=== PATIENT | female | born 1980 | race Two or more races ===

== ENCOUNTER → 2016-10-05 | Outpatient (CLI) | payer MEDICAID ==
[2016-10-05 10:07] LABS: ABSOLUTE BASOPHILS # (AUTO) 0.1 10^3/uL (0.0-0.2); ABSOLUTE EOSINOPHILS # (AUTO) 0.1 10^3/uL (0.0-0.6); ABSOLUTE LYMPHOCYTES (AUTO) 2.9 10^3/uL (0.5-4.7); ABSOLUTE MONOCYTES (AUTO) 0.5 10^3/uL (0.1-1.4); ABSOLUTE NEUT (AUTO) 7.3 10^3/uL (1.7-8.2); BASOPHILS % (AUTO) 0.5 % (0-2); EOSINOPHILS % (AUTO) 0.8 % (0-6); HEMATOCRIT 24.4 % (36.0-47.0); HGB HCT DIFFERENCE -2.2; LYMPHOCYTES % (AUTO) 26.9 % (13-45); MEAN CORPUSCULAR HEMOGLOBIN 16.6 pg (27.0-33.4); MEAN CORPUSCULAR HGB CONC 30.1 g/dL (32.0-36.0); MEAN CORPUSCULAR VOLUME 55 fl (80-97); RED BLOOD COUNT 4.43 10^6/uL (3.72-5.28); RED CELL DISTRIBUTION WIDTH 23.4 % (11.5-14.0); SEGMENTED NEUTROPHILS % (AUTO) 66.8 % (42-78); WHITE BLOOD COUNT 10.9 10^3/uL (4.0-10.5)
[2016-10-05 10:29] LABS: POLYCHROMASIA SLIGHT
[2016-10-05 10:30] LABS: ANISOCYTOSIS 3+; HEMOGLOBIN 7.4 g/dL (12.0-15.5); HYPOCHROMASIA 2+; MICROCYTOSIS 4+; OVALOCYTES SLIGHT; POIKILOCYTOSIS 1+; TEAR DROP CELLS SLIGHT
[2016-10-05 10:32] LABS: ALANINE AMINOTRANSFERASE 23 U/L (9-52); ALKALINE PHOSPHATASE 112 U/L (38-126); ANION GAP 14 (5-19); ASPARTATE AMINO TRANSFERASE 17 U/L (14-36); BILIRUBIN,DIRECT 0.4 mg/dL (0.0-0.4); BILIRUBIN,TOTAL 0.8 mg/dL (0.2-1.3); BLOOD UREA NITROGEN 9 mg/dL (7-20); CALCIUM 9.8 mg/dL (8.4-10.2); CARBON DIOXIDE 25 mmol/L (22-30); CHLORIDE 103 mmol/L (98-107); CHOLESTEROL 171.91 mg/dL (0-200); CREATININE RESULT 0.68 mg/dL (0.52-1.25); Direct HDL 50 mg/dL (>40); GLUCOSE 118 mg/dL (75-110); POTASSIUM 4.5 mmol/L (3.6-5.0); SODIUM 141.8 mmol/L (137-145); TOTAL PROTEIN 7.3 g/dL (6.3-8.2); TRIGLYCERIDES 114 mg/dL (<150)
[2016-10-05 10:45] LABS: DIRECT LDL 90 mg/dL (<100)
[2016-10-06 19:51] LABS: PATH REVIEW PATHOLOGIST REVIEWED
== END ==
LOC: OD 09:21
PROVIDERS: ATTEND Nurse Practitioner Psychiatric/Mental Health
DX: F31.73 Bipolar disorder, in partial remission, most recent episode manic (principal); Z79.899 Other long term (current) drug therapy
CPT/HCPCS: 36415; 80053; 80061; 83036; 84443; 85025

== ENCOUNTER 2016-12-06 20:01 | Emergency (ER) | payer MEDICAID ==
[2016-12-06 20:40] LABS: APPEARANCE,URINE CLOUDY; BILIRUBIN,URINE NEGATIVE (NEGATIVE); GLUCOSE, URINE NEGATIVE (NEGATIVE); KETONES,URINE NEGATIVE (NEGATIVE); LEUKOCYTE ESTERASE,URINE LARGE (NEGATIVE); NITRITE,URINE NEGATIVE (NEGATIVE); PROTEIN,URINE 100 mg/dL (NEGATIVE); URINE SPECIFIC GRAVITY 1.021
[2016-12-06] MEDS ORDERED: HYDROCODONE/ACETAMINOPHEN 5-325 MG TABLET PO ONE (20:41)
--- NOTE | 2016-12-06 20:42 | ER Document Report ---
ED Neck/Back Problem - General Chief Complaint: Back Pain Stated Complaint: LOWER BACK PAIN Time Seen by Provider: 12/06/16 20:30 Mode of Arrival: Ambulatory Information source: Patient TRAVEL OUTSIDE OF THE [place] IN LAST 30 DAYS: No - HPI Patient complains to provider of: Pain, Injury, Lower back Onset: Other - 2 days ago Where: Home Onset: Sudden Timing: Constant Quality of pain: Achy Severity: Moderate Pain Level: 3 Context: Fall/near-fall Recent injury: Yes Exacerbated by: Movement of trunk Relieved by: Nothing Similar symptoms previously: Yes Recently seen / treated by doctor: Yes Notes: Patient is a 36-year-old female who presents to the emergency room complaining of low back pain as well as dysuria, she did have a slip and fall 2 days ago, landing on her buttocks, she denies any numbness or tingling, no bowel or bladder dysfunction, she has been having pain and burning with urination for 2 weeks, she has been taking Pyridium which is not helping her symptoms, patient did also mention that she is having some vision changes over the past month, she has seen her neurologist for this just yesterday and has a follow-up with him as well - Related Data Allergies/Adverse Reactions: latex [Latex] Allergy (Intermediate, Verified 03/15/12 12:34) swelling Beer Allergy (Severe, Uncoded 05/06/12 13:16) Hives Tomatoes Allergy (Severe, Uncoded 05/06/12 13:16) Swelling all over Vikrill Stitch Adverse Reaction (Intermediate, Uncoded 05/09/12 12:36) Past Medical History - General Information source: Patient - Social History Smoking Status: Unknown if Ever Smoked Family History: Reviewed & Not Pertinent Patient has suicidal ideation: No Patient has homicidal ideation: No - Past Medical History Cardiac Medical History: Reports: Hx Hypertension Pulmonary Medical History: Reports: Hx Asthma Neurological Medical History: Reports: Hx Migraine, Hx Seizures - Grand Mal ( last one 2011) Endocrine Medical History: Reports: Hx Diabetes Mellitus Type 2 Renal/ Medical History: Reports: Hx Kidney Stones, Hx Ovarian Cysts. Denies: Hx Peritoneal Dialysis Musculoskeltal Medical History: Reports Hx Arthritis - Lower back, hands Psychiatric Medical History: Reports: Hx Attention Deficit Hyperactivity Disorder, Hx Bipolar Disorder Past Surgical History: Reports: Hx Orthopedic Surgery - Rods in back, Hx Tubal Ligation - Immunizations Hx Diphtheria, Pertussis, Tetanus Vaccination: Yes - 2005 Hx Pneumococcal Vaccination: 03/11/07 Review of Systems - Review of Systems Constitutional: No symptoms reported EENT: No symptoms reported Cardiovascular: No symptoms reported Respiratory: No symptoms reported Gastrointestinal: No symptoms reported Genitourinary: See HPI Female Genitourinary: No symptoms reported Musculoskeletal: See HPI Skin: No symptoms reported Hematologic/Lymphatic: No symptoms reported Neurological/Psychological: No symptoms reported -: Yes All other systems reviewed and negative Physical Exam - Vital signs Vitals: Temp Pulse Resp BP Pulse Ox 98.4 F 66 18 124/65 98 12/06/16 20:06 12/06/16 20:06 12/06/16 20:06 12/06/16 20:06 12/06/16 20:06 Interpretation: Normal - General General appearance: Appears well, Alert - HEENT Head: Normocephalic, Atraumatic Eyes: Normal Pupils: PERRL - Respiratory Respiratory status: No respiratory distress Chest status: Nontender Breath sounds: Normal Chest palpation: Normal - Cardiovascular Rhythm: Regular Heart sounds: Normal auscultation Murmur: No - Abdominal Inspection: Normal Distension: No distension Bowel sounds: Normal Tenderness: Nontender Organomegaly: No organomegaly - Back Back: Normal, Tender - tender to palpate in bilateral lumbar paraspinal musculature, increased on the left side - Extremities General upper extremity: Normal inspection, Nontender, Normal color, Normal ROM , Normal temperature General lower extremity: Normal inspection, Nontender, Normal color, Normal ROM , Normal temperature, Normal weight bearing. No: Andrzej's sign - Neurological Neuro grossly intact: Yes Cognition: Normal Orientation: AAOx4 Kent Coma Scale Eye Opening: Spontaneous Jenna Coma Scale Verbal: Oriented Kent Coma Scale Motor: Obeys Commands Jenna Coma Scale Total: 15 Speech: Normal Motor strength normal: LUE, RUE, LLE, RLE Sensory: Normal - Psychological Associated symptoms: Normal affect, Normal mood - Skin Skin Temperature: Warm Skin Moisture: Dry Skin Color: Normal Course - Re-evaluation Re-evalutation: 12/06/16 21:30 Lab and imaging findings were discussed with patient at bedside which are significant for urinary tract infection patient will be started on antibiotics and provided with pain medication as well as information for follow-up, advised to return if any additional concerns, patient acknowledges understanding and agreement with this plan - Vital Signs Vital signs: Temp Pulse Resp BP Pulse Ox 99.0 F 64 17 109/63 98 12/06/16 21:53 12/06/16 21:53 12/06/16 21:53 12/06/16 21:53 12/06/16 21:53 - Laboratory Laboratory results interpreted by me: 12/06/16 20:20 Urine Protein 100 H Urine Blood SMALL H Urine Urobilinogen 4.0 H Ur Leukocyte Esterase LARGE H - Diagnostic Test Radiology reviewed: Image reviewed, Reports reviewed Discharge - Discharge Clinical Impression: Lumbar strain Qualifiers: Encounter type: initial encounter Qualified Code(s): S39.012A - Strain of muscle, fascia and tendon of lower back, initial encounter Urinary tract infection Qualifiers: Urinary tract infection type: site unspecified Hematuria presence: without hematuria Qualified Code(s): N39.0 - Urinary tract infection, site not specified Condition: Stable Disposition: HOME, SELF-CARE Instructions: Low Back Pain ([facility]), Urinary Tract Infection ([facility]), Muscle Strain ([facility]) Additional Instructions: Follow up with your primary care provider in one to 2 days. Return to the emergency room immediately if symptoms worsen or any additional concerns. Prescriptions: Cephalexin Monohydrate [Keflex 500 mg Capsule] 500 mg PO BID #20 capsule Hydrocodone/Acetaminophen [Hydrocodon-Acetaminophen 5-325] 1 each PO Q6 #10 tablet
--- NOTE | 2016-12-06 21:16 | RADIOLOGY REPORT (SQ) ---
EXAM DESCRIPTION: L SPINE WHOLE COMPLETED DATE/TIME: 12/06/2016 8:59 pm REASON FOR STUDY: fall COMPARISON: None. NUMBER OF VIEWS: Five views including obliques. TECHNIQUE: AP, lateral, oblique, and sacral radiographic images acquired of the lumbar spine. LIMITATIONS: None. FINDINGS: MINERALIZATION: Normal. SEGMENTATION: Normal. No transitional anatomy. ALIGNMENT: Normal. VERTEBRAE: Maintained height. No fracture or worrisome bone lesion. DISCS: Preserved height. No significant osteophytes or end plate irregularity. POSTERIOR ELEMENTS: Decompression L5. HARDWARE: Multilevel pedicle screws. Disc prosthesis L5-S1. PARASPINAL SOFT TISSUES: Normal. PELVIS: Intact as visualized. No fractures or worrisome bone lesions. SI joints intact. OTHER: Left nephrolithiasis. IMPRESSION: Postsurgical changes. No acute fractures. Left nephrolithiasis. TECHNICAL DOCUMENTATION: JOB ID: [id number] [employer]- All Rights Reserved
[2016-12-06] MEDS ORDERED: HYDROCODONE/ACETAMINOPHEN 5-325 MG 6 TAB/DSPK PO PRN (21:23)
[2016-12-06] MEDS ORDERED: CEPHALEXIN 500 MG CAPSULE PO ONE (21:23)
[2016-12-06 21:56] VITALS: BP 109/63
== END 2016-12-06 21:55 | disposition home or self-care (01) ==
LOC: ER 20:01
DX: S39.012A Strain of muscle, fascia and tendon of lower back, initial encounter (principal); N39.0 Urinary tract infection, site not specified; M54.9 Dorsalgia, unspecified; M54.5 Low back pain; R30.0 Dysuria; H53.9 Unspecified visual disturbance; W01.0XXA Fall on same level from slipping, tripping and stumbling without subsequent striking against object, initial encounter
CPT/HCPCS: 72110; 81001; 81025; 99283

== ENCOUNTER 2016-12-08 18:33 | Emergency (ER) | payer MEDICAID ==
--- NOTE | 2016-12-08 20:42 | RADIOLOGY REPORT (SQ) ---
EXAM DESCRIPTION: CT HEAD WITHOUT COMPLETED DATE/TIME: 12/08/2016 8:30 pm REASON FOR STUDY: , Hit head, multiple syncopal episodes COMPARISON: None. TECHNIQUE: Axial images acquired through the brain without intravenous contrast. Images reviewed wi th bone, brain and subdural windows. Images stored on PACS. All CT scanners at this facility use dose modulation, iterative reconstruction, and/or weight based d osing when appropriate to reduce radiation dose to as low as reasonably achievable (ALARA). [facility]: Dose Right [facility]: CareDose [facility]: Dose Right [facility]: Teradose 4D [facility]: reMail RADIATION DOSE: Up-to-date CT equipment and radiation dose reduction techniques were employed. CTDIv ol: 64.6 mGy. DLP: 1163 mGy-cm. mGy. LIMITATIONS: None. FINDINGS: VENTRICLES: Normal size and contour. CEREBRUM: No masses. No hemorrhage. No midline shift. Normal piña/white matter differentiation. N o evidence for acute infarction. CEREBELLUM: No masses. No hemorrhage. No alteration of density. No evidence for acute infarction. EXTRAAXIAL SPACES: No fluid collections. No masses. ORBITS AND GLOBE: No intra- or extraconal masses. Normal contour of globe without masses. CALVARIUM: No fracture. PARANASAL SINUSES: No fluid or mucosal thickening. SOFT TISSUES: No mass or hematoma. OTHER: No other significant finding. IMPRESSION: NORMAL BRAIN CT WITHOUT CONTRAST. TECHNICAL DOCUMENTATION: JOB ID: [id number] Quality ID # [id number]: Final reports with documentation of one or more dose reduction techniques (e.g., Au tomated exposure control, adjustment of the mA and/or kV according to patient size, use of iterative reconstruction technique) 2010 [employer]- All Rights Reserved
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
[2016-12-08 20:47] LABS: APPEARANCE,URINE CLOUDY; BILIRUBIN,URINE NEGATIVE (NEGATIVE); GLUCOSE, URINE NEGATIVE (NEGATIVE); KETONES,URINE NEGATIVE (NEGATIVE); LEUKOCYTE ESTERASE,URINE LARGE (NEGATIVE); NITRITE,URINE NEGATIVE (NEGATIVE); PROTEIN,URINE NEGATIVE (NEGATIVE); URINE SPECIFIC GRAVITY 1.005
[2016-12-08 20:58] LABS: URINE BARBITURATES SCREEN NEGATIVE; URINE METHADONE SCREEN NEGATIVE; URINE OPIATES LOW NEGATIVE; URINE PHENCYCLIDINE SCREEN NEGATIVE
[2016-12-08 21:05] LABS: ABSOLUTE EOSINOPHILS # (AUTO) 0.1 10^3/uL (0.0-0.6); ABSOLUTE LYMPHOCYTES (AUTO) 3.2 10^3/uL (0.5-4.7); ABSOLUTE MONOCYTES (AUTO) 0.6 10^3/uL (0.1-1.4); ABSOLUTE NEUT (AUTO) 6.6 10^3/uL (1.7-8.2); BASOPHILS % (AUTO) 0.3 % (0-2); EOSINOPHILS % (AUTO) 1.2 % (0-6); HEMATOCRIT 23.6 % (36.0-47.0); HGB HCT DIFFERENCE -3.5; LYMPHOCYTES % (AUTO) 30.4 % (13-45); MEAN CORPUSCULAR HEMOGLOBIN 16.3 pg (27.0-33.4); MEAN CORPUSCULAR HGB CONC 28.6 g/dL (32.0-36.0); MONOCYTES % (AUTO) 5.3 % (3-13); RED BLOOD COUNT 4.14 10^6/uL (3.72-5.28); RED CELL DISTRIBUTION WIDTH 22.3 % (11.5-14.0); SEGMENTED NEUTROPHILS % (AUTO) 62.8 % (42-78); WHITE BLOOD COUNT 10.5 10^3/uL (4.0-10.5)
[2016-12-08 21:12] LABS: HEMOGLOBIN 6.7 g/dL (12.0-15.5)
[2016-12-08 21:16] LABS: ALANINE AMINOTRANSFERASE 21 U/L (9-52); ALKALINE PHOSPHATASE 93 U/L (38-126); ANION GAP 14 (5-19); ASPARTATE AMINO TRANSFERASE 13 U/L (14-36); BILIRUBIN,DIRECT 0.3 mg/dL (0.0-0.4); BILIRUBIN,TOTAL 0.4 mg/dL (0.2-1.3); BLOOD UREA NITROGEN 10 mg/dL (7-20); CALCIUM 9.7 mg/dL (8.4-10.2); CARBON DIOXIDE 24 mmol/L (22-30); CHLORIDE 101 mmol/L (98-107); CREATININE RESULT 0.74 mg/dL (0.52-1.25); GLUCOSE 116 mg/dL (75-110); POTASSIUM 4.1 mmol/L (3.6-5.0); SODIUM 139.1 mmol/L (137-145); TOTAL PROTEIN 7.3 g/dL (6.3-8.2)
[2016-12-08 21:21] LABS: VALPROIC ACID 26.4 ug/mL (50.0-120.0)
[2016-12-08 21:30] LABS: ANISOCYTOSIS 1+; HYPOCHROMASIA 2+; MICROCYTOSIS 4+; OVALOCYTES SLIGHT; POIKILOCYTOSIS SLIGHT; TEAR DROP CELLS SLIGHT; TOXIC GRANULATION SLIGHT
[2016-12-08 21:31] LABS: MEAN CORPUSCULAR VOLUME 57 fl (80-97)
[2016-12-08 21:36] LABS: ALCOHOL < 10 mg/dL (NONE DETECTED)
--- NOTE | 2016-12-08 22:07 | ER Document Report ---
ED General - General Chief Complaint: Syncope Stated Complaint: SYNCOPAL EPISODE Time Seen by Provider: 12/08/16 19:40 Mode of Arrival: Ambulatory Cannot obtain history due to: Uncooperative Notes: Patient is a 36-year-old female with past medical history of chronic iron deficiency anemia, has been noncompliant with following up with an outpatient for iron infusions, bipolar disorder, depression, ADHD, who presents today after a syncopal episode. Patient is an extremely poor historian, very difficult to ascertain the details of why she is here in the emergency department. Only upon being pressured about her exact cause for visiting the ER today based on the report from the provider in triage this patient say anything to me about having an episode of syncope today. States she believes she was walking down several steps when she passed out. She is uncertain if she harmed herself. States that she did feel lightheaded and have double vision prior to passing out. Has had multiple similar episodes in the past. She has not seen a primary care doctor regarding today's concerns. She denies any injury from the fall that she can identify. She also complains of dysuria with an associated dull, throbbing, burning pain to her suprapubic area. Nothing improves or worsens his pain. States it feels similar to when she has had urinary tract infections in the past. TRAVEL OUTSIDE OF THE [place] IN LAST 30 DAYS: No - Related Data Allergies/Adverse Reactions: latex [Latex] Allergy (Intermediate, Verified 03/15/12 12:34) swelling Beer Allergy (Severe, Uncoded 05/06/12 13:16) Hives Tomatoes Allergy (Severe, Uncoded 05/06/12 13:16) Swelling all over Vikrill Stitch Adverse Reaction (Intermediate, Uncoded 05/09/12 12:36) Past Medical History - General Information source: Patient - Social History Smoking Status: Current Every Day Smoker Frequency of alcohol use: None Drug Abuse: None Lives with: Spouse/Significant other Family History: Reviewed & Not Pertinent Patient has suicidal ideation: No Patient has homicidal ideation: No - Past Medical History Cardiac Medical History: Reports: Hx Hypertension Pulmonary Medical History: Reports: Hx Asthma Neurological Medical History: Reports: Hx Migraine, Hx Seizures - Grand Mal ( last one 2011) Endocrine Medical History: Reports: Hx Diabetes Mellitus Type 2 Renal/ Medical History: Reports: Hx Kidney Stones, Hx Ovarian Cysts. Denies: Hx Peritoneal Dialysis Musculoskeltal Medical History: Reports Hx Arthritis - Lower back, hands Psychiatric Medical History: Reports: Hx Attention Deficit Hyperactivity Disorder, Hx Bipolar Disorder Past Surgical History: Reports: Hx Orthopedic Surgery - Rods in back, Hx Tubal Ligation - Immunizations Hx Diphtheria, Pertussis, Tetanus Vaccination: Yes - 2005 Hx Pneumococcal Vaccination: 03/11/07 Review of Systems - Review of Systems Notes: Constitutional: Negative for fever. HENT: Negative for sore throat. Eyes: Negative for visual changes. Cardiovascular: Negative for chest pain. Positive for syncope Respiratory: Negative for shortness of breath. Gastrointestinal: Negative for abdominal pain, vomiting or diarrhea. Genitourinary: Positive for dysuria. Musculoskeletal: Negative for back pain. Skin: Negative for rash. Neurological: Negative for headaches, weakness or numbness. 10 point ROS negative except as marked above and in HPI. Physical Exam - Vital signs Vitals: Temp Pulse Resp BP Pulse Ox 98.7 F 76 15 105/55 L 95 12/08/16 19:03 12/08/16 19:03 12/08/16 19:03 12/08/16 19:03 12/08/16 19:03 Interpretation: Normal Notes: PHYSICAL EXAMINATION: GENERAL: Well-appearing, well-nourished and in no acute distress. HEAD: Atraumatic, normocephalic. EYES: Pupils equal round and reactive to light, extraocular movements intact, sclera anicteric, conjunctiva are normal. ENT: nares patent, oropharynx clear without exudates. Moist mucous membranes. NECK: Normal range of motion, supple without lymphadenopathy LUNGS: Breath sounds clear to auscultation bilaterally and equal. No wheezes rales or rhonchi. HEART: Regular rate and rhythm without murmurs ABDOMEN: Soft, nontender, normoactive bowel sounds. No guarding, no rebound. No masses appreciated. EXTREMITIES: Normal range of motion, no pitting or edema. No cyanosis. NEUROLOGICAL: No focal neurological deficits. Moves all extremities spontaneously and on command. PSYCH: Tangential thought process. SKIN: Warm, Dry, normal turgor, no rashes or lesions noted. Course - Re-evaluation Re-evalutation: 12/08/16 22:18 Presentation of syncope of unclear etiology. Patient normotensive, alert, without focal neurologic deficits at time of arrival. Denies syncope was during exertion. No preceding symptoms of palpitations, chest pain, or shortness of breath. Patient asymptomatic at time of arrival. EKG is without evidence of HCOM , right heart strain, ST changes to suggest ischemia, prolong QTc, delta wave, epsilon wave, or Brugada syndrome. Patient denies any family history of sudden cardiac , personal history of of structural heart disease. Patient denies any symptoms to suggest an acute PE, SD, TAD, SAH, seizure, or acute GI bleed as the etiology of their syncope today. Routine labs obtained in triage do show the patient's chronic iron deficiency anemia has gotten progressively worse over the last several months and is now at a transfusion threshold at 6.7. Will transfuse a single unit and patient is scheduled to see her precision agriculture technician at the end of this week before restarting iron infusions. On exam , no murmurs to suggest critical aortic stenosis as possible etiology. Routine labs obtained in triage also demonstrate the patient has a urinary tract infection and she does note frequency and dysuria for the past 1 week. She will be started on cephalexin. Based on overall clinical history, exam findings , vitals, and patients appearance, I feel it is safe for patient to be discharged home at this time with close outpatient follow-up and strict return precautions. Patient is in agreement with this plan, has verbalized indications for return to ED, and questions have been answered. - Vital Signs Vital signs: Temp Pulse Resp BP Pulse Ox 98.4 F 53 L 20 113/56 L 95 12/09/16 01:50 12/09/16 01:50 12/09/16 01:50 12/09/16 01:46 12/09/16 01:50 - Laboratory Result Diagrams: 12/08/16 20:47 12/08/16 20:47 Laboratory results interpreted by me: 12/08/16 12/08/16 12/08/16 20:18 20:47 20:47 Hgb 6.7 L Hct 23.6 L MCV 57 L MCH 16.3 L MCHC 28.6 L RDW 22.3 H Glucose 116 H AST 13 L Urine Blood SMALL H Urine Urobilinogen 2.0 H Ur Leukocyte Esterase LARGE H Valproic Acid 26.4 L Crossmatch 12/08/16 22:27 Hgb Hct MCV MCH MCHC RDW Glucose AST Urine Blood Urine Urobilinogen Ur Leukocyte Esterase Valproic Acid Crossmatch See Detail - Diagnostic Test Radiology reviewed: Reports reviewed - EKG Interpretation by Me Additional EKG results interpreted by me: 12/09/16 03:48 Normal sinus rhythm. Rate 61. No ST elevations or depressions. QTC is 431. Discharge - Discharge Clinical Impression: Urinary tract infection Syncope Qualifiers: Syncope type: unspecified Qualified Code(s): R55 - Syncope and collapse Iron deficiency anemia Qualifiers: Iron deficiency anemia type: other iron deficiency Qualified Code(s): D50.8 - Other iron deficiency anemias Condition: Good Disposition: HOME, SELF-CARE Additional Instructions: You were seen today after an episode of passing out. Your EKG here is normal. At this time, we do not feel that your episode of passing out was from any life- threatening cause. It may be related to your chronically low blood level as your levels were so low today we actually had to give you a transfusion of blood. Please follow-up with your precision agriculture technician as scheduled and restart iron infusions if your precision agriculture technician recommends this. Please drink plenty of fluids over the next several days. Return to emergency department if you have any further episodes of syncope, headache, weakness, numbness, chest pain, or shortness of breath. Please follow up closely with your primary care physician. Your labs also incidentally noted that you have a urinary tract infection. Your urine shows findings consistent with a urinary tract infection. Please take all the antibiotics as directed even if your symptoms have improved. Please follow-up with your primary care physician as needed. Return to emergency room if you develop fever >101F, persistent vomiting, become lethargic , have severe pain in your sides, or any other symptoms that are concerning to you. Prescriptions: Cephalexin Monohydrate [Keflex 500 mg Capsule] 500 mg PO QID #20 capsule
[2016-12-08] MEDS ORDERED: NORMAL SALINE 250 ML IV PRN (22:14)
[2016-12-08] MEDS ORDERED: CEPHALEXIN 500 MG CAPSULE PO ONE (22:17)
[2016-12-09 02:00] VITALS: BP 113/56
--- NOTE | 2016-12-09 13:42 | EKG REPORT ---
SEVERITY:- BORDERLINE ECG - SINUS RHYTHM LVH BY VOLTAGE BORDERLINE T ABNORMALITIES, INFERIOR LEADS : Confirmed by: Torin Ackerman 09-Dec-2016 13:40:45
[2016-12-11 14:37] LABS: PATH REVIEW PATHOLOGIST REVIEWED
== END 2016-12-09 02:20 | disposition home or self-care (01) ==
LOC: ER 18:33
DX: R55 Syncope and collapse (principal); D50.9 Iron deficiency anemia, unspecified; T45.4X6A Underdosing of iron and its compounds, initial encounter; Z91.14 Patient's other noncompliance with medication regimen; N39.0 Urinary tract infection, site not specified; E11.9 Type 2 diabetes mellitus without complications; I10 Essential (primary) hypertension; J45.909 Unspecified asthma, uncomplicated; F17.200 Nicotine dependence, unspecified, uncomplicated; Z91.040 Latex allergy status; Z91.018 Allergy to other foods
CPT/HCPCS: 93005; 99284; 86900; 86901; 36415; 36430; 86850; 82962; 80307 ×2; 84703; 85025; 80053; 81001; 80164; 86920; 70450; 93010; P9016

== ENCOUNTER 2016-12-10 23:01 | Emergency (ER) | payer MEDICAID ==
[2016-12-11 01:00] LABS: ALANINE AMINOTRANSFERASE 23 U/L (9-52); ALKALINE PHOSPHATASE 85 U/L (38-126); ANION GAP 12 (5-19); ASPARTATE AMINO TRANSFERASE 22 U/L (14-36); BILIRUBIN,DIRECT 0.3 mg/dL (0.0-0.4); BILIRUBIN,TOTAL 0.7 mg/dL (0.2-1.3); BLOOD UREA NITROGEN 8 mg/dL (7-20); CALCIUM 9.3 mg/dL (8.4-10.2); CARBON DIOXIDE 21 mmol/L (22-30); CHLORIDE 106 mmol/L (98-107); CREATININE RESULT 0.75 mg/dL (0.52-1.25); GLUCOSE 111 mg/dL (75-110); POTASSIUM 4.3 mmol/L (3.6-5.0); SODIUM 138.7 mmol/L (137-145); TOTAL PROTEIN 7.2 g/dL (6.3-8.2)
[2016-12-11 01:02] LABS: ABSOLUTE EOSINOPHILS # (AUTO) 0.1 10^3/uL (0.0-0.6); ABSOLUTE LYMPHOCYTES (AUTO) 3.1 10^3/uL (0.5-4.7); ABSOLUTE MONOCYTES (AUTO) 0.5 10^3/uL (0.1-1.4); ABSOLUTE NEUT (AUTO) 7.4 10^3/uL (1.7-8.2); BASOPHILS % (AUTO) 0.4 % (0-2); EOSINOPHILS % (AUTO) 0.7 % (0-6); HEMATOCRIT 25.7 % (36.0-47.0); HGB HCT DIFFERENCE -3.5; LYMPHOCYTES % (AUTO) 28.1 % (13-45); MEAN CORPUSCULAR HEMOGLOBIN 17.3 pg (27.0-33.4); MEAN CORPUSCULAR HGB CONC 28.7 g/dL (32.0-36.0); MEAN CORPUSCULAR VOLUME 60 fl (80-97); MONOCYTES % (AUTO) 4.6 % (3-13); RED BLOOD COUNT 4.27 10^6/uL (3.72-5.28); RED CELL DISTRIBUTION WIDTH 26.7 % (11.5-14.0); SEGMENTED NEUTROPHILS % (AUTO) 66.2 % (42-78); WHITE BLOOD COUNT 11.1 10^3/uL (4.0-10.5)
[2016-12-11 01:11] LABS: HEMOGLOBIN 7.4 g/dL (12.0-15.5)
[2016-12-11 01:19] LABS: ANISOCYTOSIS 2+; HYPOCHROMASIA 2+; MICROCYTOSIS 3+; OVALOCYTES 1+; POLYCHROMASIA SLIGHT; TOXIC GRANULATION SLIGHT; TOXIC VACUOLATION PRESENT
[2016-12-11] MEDS ORDERED: HYDROCODONE/ACETAMINOPHEN 5-325 MG TABLET PO ONE (02:25)
--- NOTE | 2016-12-11 03:23 | RADIOLOGY REPORT (SQ) ---
EXAM DESCRIPTION: FOOT RIGHT COMPLETE COMPLETED DATE/TIME: 12/11/2016 2:51 am REASON FOR STUDY: R foot sprain COMPARISON: None. NUMBER OF VIEWS: Three views. TECHNIQUE: AP, lateral and oblique radiographic images acquired of the right foot. LIMITATIONS: None. FINDINGS: MINERALIZATION: Normal. BONES: No acute fracture or dislocation. No worrisome bone lesions. Small Achilles tendinous enthes ophyte. JOINTS: No effusions. SOFT TISSUES: Mild swelling of the dorsal foot. OTHER: No other significant finding. IMPRESSION: Swelling. No evidence of fracture or dislocation. TECHNICAL DOCUMENTATION: JOB ID: [id number] [employer]- All Rights Reserved
--- NOTE | 2016-12-11 03:51 | ER Document Report ---
ED General - General Chief Complaint: Headache Stated Complaint: DIZZINESS Time Seen by Provider: 12/11/16 02:12 Mode of Arrival: Ambulatory Information source: Patient TRAVEL OUTSIDE OF THE [place] IN LAST 30 DAYS: No - HPI Notes: Patient is a 36-year-old female history of bipolar disorder and migraines presents to the emergency department with report in triage that she was having headaches, but on my questioning she denied any headaches and only reported pain to the right foot since an injury while running in the yard 4 days ago when she may have twisted. She denies any specific ankle pain or knee pain. She reports no fever chills or abdominal pain or chest pain. She was seen yesterday with anemia and hemoglobin of 6.7 and received a blood transfusion. She has a long-standing history of iron deficiency anemia, but is not taking iron sufficiently. She states she used to receive IV iron infusions, but she no longer has this covered by her Medicaid. Patient was diagnosed with a UTI yesterday and was written for Keflex, which she claims to be taking. A urine culture was not taken at that time. - Related Data Allergies/Adverse Reactions: latex [Latex] Allergy (Intermediate, Verified 03/15/12 12:34) swelling Beer Allergy (Severe, Uncoded 05/06/12 13:16) Hives Tomatoes Allergy (Severe, Uncoded 05/06/12 13:16) Swelling all over Vikrill Stitch Adverse Reaction (Intermediate, Uncoded 05/09/12 12:36) Past Medical History - General Information source: Patient - Social History Smoking Status: Never Smoker Frequency of alcohol use: None Drug Abuse: None Lives with: Family Family History: Reviewed & Not Pertinent Patient has suicidal ideation: No Patient has homicidal ideation: No - Past Medical History Cardiac Medical History: Reports: Hx Hypertension Pulmonary Medical History: Reports: Hx Asthma Neurological Medical History: Reports: Hx Migraine, Hx Seizures - Grand Mal ( last one 2011) Endocrine Medical History: Reports: Hx Diabetes Mellitus Type 2 Renal/ Medical History: Reports: Hx Kidney Stones, Hx Ovarian Cysts. Denies: Hx Peritoneal Dialysis Musculoskeltal Medical History: Reports Hx Arthritis - Lower back, hands Psychiatric Medical History: Reports: Hx Attention Deficit Hyperactivity Disorder, Hx Bipolar Disorder Past Surgical History: Reports: Hx Orthopedic Surgery - Rods in back, Hx Tubal Ligation - Immunizations Hx Diphtheria, Pertussis, Tetanus Vaccination: Yes - 2005 Hx Pneumococcal Vaccination: 03/11/07 Review of Systems - Review of Systems Notes: REVIEW OF SYSTEMS: CONSTITUTIONAL : Denies fever, chills, or sweats. Denies recent illness. EENT: Denies eye, ear, throat, or mouth pain or symptoms. Denies nasal or sinus congestion or discharge. Denies throat, tongue, or mouth swelling or difficulty swallowing. CARDIOVASCULAR: Denies chest pain. Denies palpitations or racing or irregular heart beat. Denies ankle edema. RESPIRATORY: Denies cough, cold, or chest congestion. Denies shortness of breath, difficulty breathing, or wheezing. GASTROINTESTINAL: Denies abdominal pain or distention. Denies nausea, vomiting , or diarrhea. Denies blood in vomitus, stools, or per rectum. Denies black, tarry stools. Denies constipation. GENITOURINARY: patient still reports mild dysuria and frequency. FEMALE GENITOURINARY: Denies vaginal bleeding, heavy or abnormal periods, irregular periods. Denies vaginal discharge or odor. MUSCULOSKELETAL: Denies back or neck pain or stiffness. Patient reports right foot pain and mild swelling. SKIN: Denies rash, lesions or sores. HEMATOLOGIC : Denies easy bruising or bleeding. LYMPHATIC: Denies swollen, enlarged glands. NEUROLOGICAL: Denies confusion or altered mental status. Denies passing out or loss of consciousness. Denies dizziness or lightheadedness. Denies headache. Denies weakness or paralysis or loss of use of either side. Denies problems with gait or speech. Denies sensory loss, numbness, or tingling. Denies seizures. PSYCHIATRIC: Denies anxiety or stress. Denies depression, suicidal ideation, or homicidal ideation. ALL OTHER SYSTEMS REVIEWED AND NEGATIVE. Dictation was performed using [employer] voice recognition software Physical Exam - Vital signs Vitals: Temp Pulse Resp BP Pulse Ox 98.3 F 65 18 130/69 H 100 12/10/16 23:08 12/10/16 23:08 12/10/16 23:08 12/10/16 23:08 12/10/16 23:08 - Notes Notes: PHYSICAL EXAMINATION: GENERAL: Well-appearing, well-nourished and in no acute distress. HEAD: Atraumatic, normocephalic. EYES: Pupils equal round and reactive to light, extraocular movements intact, conjunctiva are normal. ENT: Nares patent, oropharynx clear without exudates. Moist mucous membranes. NECK: Normal range of motion, supple without lymphadenopathy LUNGS: Breath sounds clear to auscultation bilaterally and equal. No wheezes rales or rhonchi. HEART: Regular rate and rhythm without murmurs ABDOMEN: Soft, nontender, nondistended abdomen. No guarding, no rebound. No masses appreciated. Female : deferred Musculoskeletal: Normal range of motion. Pain to the right foot with minimal swelling. No erythema or suggestion for cellulitis. Distally the patient has good sensation and capillary refill and pulses. There is no crepitance or bony deformity. The ankle and knee are nonfocal. NEUROLOGICAL: Cranial nerves grossly intact. Normal speech, normal gait. Normal sensory, motor exams PSYCH: Normal mood, normal affect. SKIN: Warm, Dry, normal turgor, no rashes or lesions noted. Course - Re-evaluation Re-evalutation: 12/11/16 04:00 X-ray was negative. No evidence for fracture. Hemoglobin of 7.4 is the patient's baseline, consistent with previous levels. I discussed at length with the patient the need to take a regular iron supplement. One is written for prescription. Right foot Virgil wrap is placed. Urine culture ordered, as one was not performed yesterday. Patient is taking her Keflex as directed. - Vital Signs Vital signs: Temp Pulse Resp BP Pulse Ox 98.3 F 65 18 130/69 H 100 12/10/16 23:08 12/10/16 23:08 12/10/16 23:08 12/10/16 23:08 12/10/16 23:08 - Laboratory Result Diagrams: 12/11/16 00:15 12/11/16 00:15 Laboratory results interpreted by me: 12/11/16 12/11/16 00:15 00:15 WBC 11.1 H Hgb 7.4 L Hct 25.7 L MCV 60 L MCH 17.3 L MCHC 28.7 L RDW 26.7 H Carbon Dioxide 21 L Glucose 111 H Discharge - Discharge Clinical Impression: Iron deficiency anemia Qualifiers: Iron deficiency anemia type: unspecified iron deficiency Qualified Code(s): D50.9 - Iron deficiency anemia, unspecified Right foot sprain Qualifiers: Encounter type: initial encounter Qualified Code(s): S93.601A - Unspecified sprain of right foot, initial encounter Urinary tract infection Qualifiers: Urinary tract infection type: acute cystitis Hematuria presence: without hematuria Qualified Code(s): N30.00 - Acute cystitis without hematuria Condition: Stable Disposition: HOME, SELF-CARE Instructions: Urinary Tract Infection ([facility]), Sprain ([facility]) Additional Instructions: Use Virgil wrap and crutches as needed. Elevate your foot as needed. Talk with your regular practitioner about your medications regarding your losing your train of thought. Drink plenty of fluids. Stand up slowly. Continue your Keflex (cephalexin) for your urinary tract infection. Prescriptions: Ferrous Sulfate [Slow Fe] 142 mg PO TID #90 tablet.er
[2016-12-11] MEDS ORDERED: NAPROXEN 375 MG TABLET PO ONE (04:11)
[2016-12-11] MEDS ORDERED: NAPROXEN 375 MG TABLET ONE (04:34)
[2016-12-11 04:42] VITALS: BP 116/63
== END 2016-12-11 04:43 | disposition home or self-care (01) ==
LOC: ER 23:01
DX: S93.601A Unspecified sprain of right foot, initial encounter (principal); X58.XXXA Exposure to other specified factors, initial encounter; N30.00 Acute cystitis without hematuria; D50.9 Iron deficiency anemia, unspecified; T45.4X6A Underdosing of iron and its compounds, initial encounter; Z91.128 Patient's intentional underdosing of medication regimen for other reason; Z91.14 Patient's other noncompliance with medication regimen; I10 Essential (primary) hypertension; J45.909 Unspecified asthma, uncomplicated; E11.9 Type 2 diabetes mellitus without complications; Z86.69 Personal history of other diseases of the nervous system and sense organs; Z91.040 Latex allergy status; Z91.018 Allergy to other foods
CPT/HCPCS: 99284; 36415; 85025; 80053; 73630; J3490

== ENCOUNTER 2016-12-11 10:09 | Emergency (ER) | payer MEDICAID ==
--- NOTE | 2016-12-11 10:34 | ER Document Report ---
ED Medical Screen (RME) - General Chief Complaint: Memory Loss Stated Complaint: BLOOD TEST Time Seen by Provider: 12/11/16 10:26 Notes: Patient is a 36-year-old female who returns emergency department after being discharged earlier this morning complaining of 2 recent syncopal events. Patient states that she was seen here twice this weekend for altered mental status and anemia. Patient was transfused on December 08 for hemoglobin of 6.7. She was recently evaluated earlier today with a hemoglobin of 7.4 discharged home with instruction to take her iron supplements and to follow-up with her ichthyologist. Patient states that she will not take her iron because of how it affects her stomach. Patient states that she is does not feel any different than before she refused her transfusion. Otherwise she is oriented to person, place, time, and events. I have greeted and performed a rapid initial assessment of this patient. A comprehensive ED assessment and evaluation of the patient, analysis of test results and completion of the medical decision making process will be conducted by additional ED providers. TRAVEL OUTSIDE OF THE [place] IN LAST 30 DAYS: No - Related Data Allergies/Adverse Reactions: latex [Latex] Allergy (Intermediate, Verified 12/11/16 10:12) swelling Beer Allergy (Severe, Uncoded 12/11/16 10:12) Hives Tomatoes Allergy (Severe, Uncoded 12/11/16 10:12) Swelling all over Vikrill Stitch Adverse Reaction (Intermediate, Uncoded 12/11/16 10:12) Past Medical History - Social History Family history: Malignancy - colon - Past Medical History Cardiac Medical History: Reports: Hx Hypertension Pulmonary Medical History: Reports: Hx Asthma Neurological Medical History: Reports: Hx Migraine, Hx Seizures - Grand Mal ( last one 2011) Endocrine Medical History: Reports: Hx Diabetes Mellitus Type 2 Renal/ Medical History: Reports: Hx Kidney Stones, Hx Ovarian Cysts. Denies: Hx Peritoneal Dialysis Musculoskeltal Medical History: Reports Hx Arthritis - Lower back, hands Psychiatric Medical History: Reports: Hx Attention Deficit Hyperactivity Disorder, Hx Bipolar Disorder Past Surgical History: Reports: Hx Orthopedic Surgery - Rods in back, Hx Tubal Ligation - Immunizations Hx Diphtheria, Pertussis, Tetanus Vaccination: Yes - 2005 Physical Exam - Vital signs Vitals: Temp Pulse Resp BP Pulse Ox 98.4 F 57 L 20 114/65 96 12/11/16 10:12 12/11/16 10:12 12/11/16 10:12 12/11/16 10:12 12/11/16 10:12 - General General appearance: Appears well, Alert In distress: None - Cardiovascular Rhythm: Regular Heart sounds: Normal auscultation, S1 appreciated, S2 appreciated Pulses: Normal: Radial Normal capillary refill: Yes - Neurological Neuro grossly intact: Yes Cognition: Normal Orientation: AAOx4 [place] Coma Scale Eye Opening: Spontaneous [place] Coma Scale Verbal: Oriented [place] Coma Scale Motor: Obeys Commands [place] Coma Scale Total: 15 Course - Vital Signs Vital signs: Temp Pulse Resp BP Pulse Ox 98.4 F 57 L 20 114/65 96 12/11/16 10:12 12/11/16 10:12 12/11/16 10:12 12/11/16 10:12 12/11/16 10:12
[2016-12-11 11:23] LABS: ABSOLUTE EOSINOPHILS # (AUTO) 0.1 10^3/uL (0.0-0.6); ABSOLUTE LYMPHOCYTES (AUTO) 2.2 10^3/uL (0.5-4.7); ABSOLUTE MONOCYTES (AUTO) 0.4 10^3/uL (0.1-1.4); ABSOLUTE NEUT (AUTO) 7.1 10^3/uL (1.7-8.2); BASOPHILS % (AUTO) 0.3 % (0-2); EOSINOPHILS % (AUTO) 0.7 % (0-6); HEMATOCRIT 24.4 % (36.0-47.0); HGB HCT DIFFERENCE -2.8; LYMPHOCYTES % (AUTO) 22.3 % (13-45); MEAN CORPUSCULAR HEMOGLOBIN 17.5 pg (27.0-33.4); MEAN CORPUSCULAR HGB CONC 29.5 g/dL (32.0-36.0); MEAN CORPUSCULAR VOLUME 59 fl (80-97); MONOCYTES % (AUTO) 4.5 % (3-13); RED BLOOD COUNT 4.12 10^6/uL (3.72-5.28); RED CELL DISTRIBUTION WIDTH 25.8 % (11.5-14.0); SEGMENTED NEUTROPHILS % (AUTO) 72.2 % (42-78); WHITE BLOOD COUNT 9.8 10^3/uL (4.0-10.5)
--- NOTE | 2016-12-11 11:23 | ER Document Report ---
ED General - General Chief Complaint: Memory Loss Stated Complaint: MEMORY LOSS Time Seen by Provider: 12/11/16 10:26 Mode of Arrival: Ambulatory Information source: Patient Notes: 36-year-old female returns to the emergency room complaining of zoning out and periods of memory loss for 3 days and eyes going blurry for 4 days when asked to read close up. When seen 3 times since December 06 in the emergency department for right foot pain and swelling, back pain and lastly on Sunday was given a blood transfusion for hemoglobin of 6.7. Past medical history is chronic anemia with previous IV iron infusions [place] [address] Davis, scoliosis, hypertension, type 2 diabetes no longer on metformin, and migraines. Systems at this time showed no fever, right sided sharp parietal headache that started at midnight last night that she describes as an early migraine, and mouth burning when she eats for several weeks. takes Marinol for the back pain TRAVEL OUTSIDE OF THE [place] IN LAST 30 DAYS: No - Related Data Allergies/Adverse Reactions: latex [Latex] Allergy (Intermediate, Verified 12/11/16 10:12) swelling Beer Allergy (Severe, Uncoded 12/11/16 10:12) Hives Tomatoes Allergy (Severe, Uncoded 12/11/16 10:12) Swelling all over Vikrill Stitch Adverse Reaction (Intermediate, Uncoded 12/11/16 10:12) Past Medical History - General Information source: Patient - Social History Smoking Status: Never Smoker Frequency of alcohol use: None Drug Abuse: None Lives with: Spouse/Significant other Family History: Reviewed & Not Pertinent Patient has suicidal ideation: No Patient has homicidal ideation: No - Past Medical History Cardiac Medical History: Reports: Hx Hypertension Pulmonary Medical History: Reports: Hx Asthma Neurological Medical History: Reports: Hx Migraine, Hx Seizures - Grand Mal ( last one 2011) Endocrine Medical History: Reports: Hx Diabetes Mellitus Type 2 Renal/ Medical History: Reports: Hx Kidney Stones, Hx Ovarian Cysts. Denies: Hx Peritoneal Dialysis Musculoskeltal Medical History: Reports Hx Arthritis - Lower back, hands Psychiatric Medical History: Reports: Hx Attention Deficit Hyperactivity Disorder, Hx Bipolar Disorder Past Surgical History: Reports: Hx Orthopedic Surgery - Rods in back, Hx Tubal Ligation - Immunizations Hx Diphtheria, Pertussis, Tetanus Vaccination: Yes - 2005 Hx Pneumococcal Vaccination: 03/11/07 Review of Systems - Review of Systems Constitutional: No symptoms reported EENT: Blurred vision Cardiovascular: No symptoms reported Respiratory: No symptoms reported Gastrointestinal: No symptoms reported Genitourinary: No symptoms reported Female Genitourinary: No symptoms reported Musculoskeletal: No symptoms reported Skin: No symptoms reported Hematologic/Lymphatic: No symptoms reported Neurological/Psychological: See HPI Physical Exam - Vital signs Vitals: Temp Pulse Resp BP Pulse Ox 98.4 F 57 L 20 114/65 96 12/11/16 10:12 12/11/16 10:12 12/11/16 10:12 12/11/16 10:12 12/11/16 10:12 Interpretation: Normal - General General appearance: Appears well, Alert In distress: None Notes: gait stable - HEENT Head: Normocephalic, Atraumatic Eyes: Normal Conjunctiva: Normal Pupils: PERRL Mucous membranes: Normal Pharynx: Normal Neck: Supple. No: Lymphadenopathy Notes: visual acuity 20/40 bilateral - Respiratory Respiratory status: No respiratory distress Chest status: Nontender Breath sounds: Normal Chest palpation: Normal - Cardiovascular Rhythm: Regular Heart sounds: Normal auscultation Murmur: No - Abdominal Inspection: Normal Distension: No distension Bowel sounds: Normal Tenderness: Nontender. No: Tender Organomegaly: No organomegaly - Back Back: Normal, Nontender. No: CVA tenderness - Extremities General upper extremity: Normal inspection, Nontender, Normal color, Normal ROM , Normal temperature General lower extremity: Normal inspection, Nontender, Normal color, Normal ROM , Normal temperature, Normal weight bearing. No: Andrzej's sign Notes: right foot with ivan wrap from previous ER visit. - Neurological Neuro grossly intact: Yes Cognition: Normal Orientation: AAOx4 [place] Coma Scale Eye Opening: Spontaneous Jenna Coma Scale Verbal: Oriented [place] Coma Scale Motor: Obeys Commands [place] Coma Scale Total: 15 Speech: Normal Motor strength normal: LUE, RUE, LLE, RLE Sensory: Normal - Psychological Associated symptoms: Normal affect, Normal mood - Skin Skin Temperature: Warm Skin Moisture: Dry Skin Color: Normal Skin irregularity: negative: Rash Course - Re-evaluation Re-evalutation: 12/11/16 12:[address] miradna who saw the pt December 06, she rec. referral to her psychiatrist, dr. cano, and also I will refer to opthamology. The head CT scan was negative 630. repeat hgb 7.2 today. Gait is stable, romberg negative. pt takes haldol, depakote, and marinol 12/11/16 22:02 - Vital Signs Vital signs: Temp Pulse Resp BP Pulse Ox 97.8 F 66 18 122/65 100 12/11/16 12:36 12/11/16 12:36 12/11/16 12:36 12/11/16 12:36 12/11/16 12:36 - Laboratory Result Diagrams: 12/11/16 11:09 Laboratory results interpreted by me: 12/11/16 12/11/16 11:09 11:09 Hgb 7.2 L Hct 24.4 L MCV 59 L MCH 17.5 L MCHC 29.5 L RDW 25.8 H Valproic Acid 38.7 L Discharge - Discharge Clinical Impression: intermittent blurred close vision, Episode of memory loss Headache Qualifiers: Headache type: unspecified Headache chronicity pattern: episodic headache Intractability: not intractable Qualified Code(s): R51 - Headache Condition: Good Disposition: HOME, SELF-CARE Instructions: Anemia ([facility]), Migraine Headache ([facility]) Additional Instructions: see your psychiatrist about the empisodic memory loss take your depakote as prescribed see dr cano about the headache to er if the symptoms worsen see opthamologist for the eye symptom Please complete the patient satisfaction survey if you get one, and return it.. If you do not receive a survey, then you can go to the [facility] website, [email or web address] and place your comments about your very good care. Thank you very much. It was a pleasure being your medical provider today. Referrals: ERINN CANO MD [EMERITUS] - Follow up tomorrow OLVIN PIPER MD [ACTIVE STAFF] - Follow up tomorrow
[2016-12-11 11:58] LABS: ANISOCYTOSIS 3+; HEMOGLOBIN 7.2 g/dL (12.0-15.5); HYPOCHROMASIA 3+; MICROCYTOSIS 4+; POLYCHROMASIA SLIGHT
[2016-12-11 11:59] LABS: OVALOCYTES 2+; POIKILOCYTOSIS 2+; TARGET CELLS SLIGHT
[2016-12-11 12:23] LABS: VALPROIC ACID 38.7 ug/mL (50.0-120.0)
[2016-12-11 12:24] LABS: ALCOHOL < 10 mg/dL (NONE DETECTED)
[2016-12-11 12:53] VITALS: BP 122/65
== END 2016-12-11 12:53 | disposition home or self-care (01) ==
LOC: ER 10:09
DX: R41.3 Other amnesia (principal); H53.8 Other visual disturbances; R51 Headache; I10 Essential (primary) hypertension; E11.9 Type 2 diabetes mellitus without complications; Z91.040 Latex allergy status; Z87.442 Personal history of urinary calculi; Z98.51 Tubal ligation status
CPT/HCPCS: 36415; 80164; 80307; 85025; 99284

== ENCOUNTER 2017-01-06 11:53 | Emergency (ER) | payer MEDICAID ==
--- NOTE | 2017-01-06 11:58 | ER Document Report ---
ED General - General Stated Complaint: DIZZINESS Mode of Arrival: Medic Information source: Patient Notes: 36-year-old female history of chronic anemia for which she receives IV iron infusions weekly presents with complaints of dizziness. Patient went to her primary care physician noted that she has had right foot swelling and was placed on Lasix, patient notes she took the Lasix for 2 days as prescribed and the symptoms did not improve. Patient notes she has been urinating often and feels dehydrated TRAVEL OUTSIDE OF THE [place] IN LAST 30 DAYS: No - HPI Onset: Other - Dizziness has been ongoing now for weeks Onset/Duration: Persistent Quality of pain: No pain Severity: Mild Pain Level: 1 Associated symptoms: Leg swelling - Right foot swelling, Weakness Exacerbated by: Standing, Walking Relieved by: Denies Similar symptoms previously: Yes Recently seen / treated by doctor: Yes - Related Data Allergies/Adverse Reactions: latex [Latex] Allergy (Intermediate, Verified 01/06/17 12:23) swelling Beer Allergy (Severe, Uncoded 01/06/17 12:23) Hives Tomatoes Allergy (Severe, Uncoded 01/06/17 12:23) Swelling all over Vikrill Stitch Adverse Reaction (Intermediate, Uncoded 01/06/17 12:23) Home Medications: Current Home Medications Albuterol Sulfate [Proair Respiclick] 90 mcg IH PRN PRN 01/06/17 [History] Biotin 10,000 mcg PO DAILY 01/06/17 [History] Fluoxetine HCl [Prozac 20 mg Capsule] 60 mg PO DAILY 01/06/17 [History] Furosemide 20 mg PO DAILY 01/06/17 [History] Haloperidol [Haldol 0.5 mg Tablet] 0.5 mg PO BID 01/06/17 [History] Lurasidone HCl [Latuda] 40 mg PO DAILY 01/06/17 [History] Naproxen 500 mg PO BID 01/06/17 [History] Nystatin 1 each TOP BID 01/06/17 [History] Omeprazole Magnesium [Prilosec Otc] 20 mg PO DAILY 01/06/17 [History] Ondansetron [Ondansetron Odt] 4 mg PO TID 01/06/17 [History] Sulfamethoxazole/Trimethoprim [Bactrim Ds Tablet] 1 tab PO BID 01/06/17 [History ] Past Medical History - Social History Smoking Status: Never Smoker Cigarette use (# per day): No Chew tobacco use (# tins/day): No Smoking Education Provided: No Family History: Reviewed & Not Pertinent - Past Medical History Cardiac Medical History: Reports: Hx Hypertension Pulmonary Medical History: Reports: Hx Asthma Neurological Medical History: Reports: Hx Migraine, Hx Seizures - Grand Mal ( last one 2011) Endocrine Medical History: Reports: Hx Diabetes Mellitus Type 2 Renal/ Medical History: Reports: Hx Kidney Stones, Hx Ovarian Cysts. Denies: Hx Peritoneal Dialysis Musculoskeltal Medical History: Reports Hx Arthritis - Lower back, hands Psychiatric Medical History: Reports: Hx Attention Deficit Hyperactivity Disorder, Hx Bipolar Disorder Past Surgical History: Reports: Hx Orthopedic Surgery - Rods in back, Hx Tubal Ligation - Immunizations Hx Diphtheria, Pertussis, Tetanus Vaccination: Yes - 2005 Hx Pneumococcal Vaccination: 03/11/07 Review of Systems - Review of Systems Notes: REVIEW OF SYSTEMS: CONSTITUTIONAL : Denies fever, chills, or sweats. Denies recent illness. EENT: Denies eye, ear, throat, or mouth pain or symptoms. Denies nasal or sinus congestion or discharge. Denies throat, tongue, or mouth swelling or difficulty swallowing. CARDIOVASCULAR: Denies chest pain. Denies palpitations or racing or irregular heart beat. Denies ankle edema. RESPIRATORY: Denies cough, cold, or chest congestion. Denies shortness of breath, difficulty breathing, or wheezing. GASTROINTESTINAL: Denies abdominal pain or distention. Denies nausea, vomiting , or diarrhea. Denies blood in vomitus, stools, or per rectum. Denies black, tarry stools. Denies constipation. GENITOURINARY: Denies difficulty urinating, painful urination, burning, frequency, blood in urine, or discharge. FEMALE GENITOURINARY: Denies vaginal bleeding, heavy or abnormal periods, irregular periods. Denies vaginal discharge or odor. MUSCULOSKELETAL: Admits right foot swelling SKIN: Denies rash, lesions or sores. HEMATOLOGIC : Denies easy bruising or bleeding. LYMPHATIC: Denies swollen, enlarged glands. NEUROLOGICAL: Admits to dizziness PSYCHIATRIC: Denies anxiety or stress. Denies depression, suicidal ideation, or homicidal ideation. ALL OTHER SYSTEMS REVIEWED AND NEGATIVE. PHYSICAL EXAMINATION: GENERAL: Well-appearing, well-nourished and in no acute distress. HEAD: Atraumatic, normocephalic. EYES: Pupils equal round and reactive to light, extraocular movements intact, conjunctiva are normal. ENT: Nares patent, oropharynx clear without exudates. Moist mucous membranes. NECK: Normal range of motion, supple without lymphadenopathy LUNGS: Breath sounds clear to auscultation bilaterally and equal. No wheezes rales or rhonchi. HEART: Regular rate and rhythm without murmurs ABDOMEN: Soft, nontender, nondistended abdomen. No guarding, no rebound. No masses appreciated. Female : deferred Musculoskeletal: 2+ pitting edema of the right foot mild tenderness of the right calf NEUROLOGICAL: Cranial nerves grossly intact. Normal speech, normal gait. Normal sensory, motor exams PSYCH: Normal mood, normal affect. SKIN: Warm, Dry, normal turgor, no rashes or lesions noted. Dictation was performed using [email or web address] voice recognition software Physical Exam - Vital signs Vitals: Temp Resp BP Pulse Ox 98.0 F 18 119/63 97 01/06/17 12:06 01/06/17 12:06 01/06/17 12:06 01/06/17 12:06 Course - Re-evaluation Re-evalutation: 01/06/17 12:06 Patient is noted to be anemic, Doppler has been ordered of the right lower extremity, lab work pending 01/06/17 14:56 Doppler was negative, it appears to be more of a cellulitic edema rather than due to fluid overload, patient appears quite dry. I will treat with antibiotics fluids and close follow-up with primary care physician After performing a Medical Screening Examination, I estimate there is LOW risk for INTRACRANIAL HEMORRHAGE, ISCHEMIC CVA, MALIGNANT DYSRHYTHMIA, ACUTE CORONARY SYNDROME, MENINGITIS, PULMONARY EMBOLISM, or SEPSIS thus I consider the discharge disposition reasonable. I have reevaluated this patient multiple times and no significant life threatening changes are noted. The patient and I have discussed the diagnosis and risks, and we agree with discharging home with close follow-up with the understanding that symptoms and presentations can change. We also discussed returning to the Emergency Department immediately if new or worsening symptoms occur. We have discussed the symptoms which are most concerning (e.g., changing or worsening pain, weakness, vomiting, fever) that necessitate immediate return. - Vital Signs Vital signs: Temp Pulse Resp BP Pulse Ox 98.0 F 20 119/63 95 01/06/17 12:06 01/06/17 14:00 01/06/17 12:06 01/06/17 14:00 - Laboratory Result Diagrams: 01/06/17 12:28 01/06/17 12:28 Laboratory results interpreted by me: 01/06/17 01/06/17 12:28 12:28 Hgb 8.7 L Hct 28.7 L MCV 63 L D MCH 19.3 L MCHC 30.5 L RDW 31.4 H Carbon Dioxide 20 L Glucose 111 H - Diagnostic Test Radiology reviewed: Image reviewed, Reports reviewed - EKG Interpretation by Me EKG shows normal: Sinus rhythm, Dalbo, Intervals, QRS Complexes Rate: Bradycardia Discharge - Discharge Clinical Impression: Dehydration Cellulitis Qualifiers: Site of cellulitis: unspecified site Qualified Code(s): L03.90 - Cellulitis, unspecified Edema Qualifiers: Edema type: unspecified Qualified Code(s): R60.9 - Edema, unspecified Condition: Stable Disposition: HOME, SELF-CARE Instructions: Edema, Peripheral ([facility]) Prescriptions: Sulfamethoxazole/Trimethoprim [Bactrim Ds Tablet] 2 each PO BID #40 tablet Referrals: CHERRY FISH MD [Primary Care Provider] - Follow up tomorrow
[2017-01-06 12:34] LABS: APPEARANCE,URINE CLEAR; BILIRUBIN,URINE NEGATIVE (NEGATIVE); GLUCOSE, URINE NEGATIVE (NEGATIVE); KETONES,URINE NEGATIVE (NEGATIVE); LEUKOCYTE ESTERASE,URINE NEGATIVE (NEGATIVE); NITRITE,URINE NEGATIVE (NEGATIVE); PROTEIN,URINE NEGATIVE (NEGATIVE); URINE SPECIFIC GRAVITY 1.001; UROBILINOGEN,URINE NEGATIVE mg/dL (<2.0)
[2017-01-06 12:49] LABS: ABSOLUTE BASOPHILS # (AUTO) 0.1 10^3/uL (0.0-0.2); ABSOLUTE EOSINOPHILS # (AUTO) 0.1 10^3/uL (0.0-0.6); ABSOLUTE LYMPHOCYTES (AUTO) 2.6 10^3/uL (0.5-4.7); ABSOLUTE MONOCYTES (AUTO) 0.4 10^3/uL (0.1-1.4); ABSOLUTE NEUT (AUTO) 5.5 10^3/uL (1.7-8.2); BASOPHILS % (AUTO) 0.7 % (0-2); EOSINOPHILS % (AUTO) 0.9 % (0-6); HEMATOCRIT 28.7 % (36.0-47.0); HEMOGLOBIN 8.7 g/dL (12.0-15.5); HGB HCT DIFFERENCE -2.6; LYMPHOCYTES % (AUTO) 30.2 % (13-45); MEAN CORPUSCULAR HEMOGLOBIN 19.3 pg (27.0-33.4); MEAN CORPUSCULAR HGB CONC 30.5 g/dL (32.0-36.0); MONOCYTES % (AUTO) 4.5 % (3-13); RED BLOOD COUNT 4.53 10^6/uL (3.72-5.28); RED CELL DISTRIBUTION WIDTH 31.4 % (11.5-14.0); SEGMENTED NEUTROPHILS % (AUTO) 63.7 % (42-78); WHITE BLOOD COUNT 8.7 10^3/uL (4.0-10.5)
[2017-01-06 12:57] LABS: ALANINE AMINOTRANSFERASE 32 U/L (9-52); ALBUMIN 4.2 g/dL (3.5-5.0); ALKALINE PHOSPHATASE 87 U/L (38-126); ANION GAP 14 (5-19); ASPARTATE AMINO TRANSFERASE 25 U/L (14-36); BILIRUBIN,DIRECT 0.3 mg/dL (0.0-0.4); BILIRUBIN,TOTAL 0.7 mg/dL (0.2-1.3); BLOOD UREA NITROGEN 7 mg/dL (7-20); CALCIUM 9.9 mg/dL (8.4-10.2); CARBON DIOXIDE 20 mmol/L (22-30); CHLORIDE 105 mmol/L (98-107); CREATININE RESULT 0.74 mg/dL (0.52-1.25); GLUCOSE 111 mg/dL (75-110); POTASSIUM 4.2 mmol/L (3.6-5.0); TOTAL PROTEIN 7.4 g/dL (6.3-8.2)
[2017-01-06 13:15] LABS: ANISOCYTOSIS 3+; HYPOCHROMASIA 2+; MICROCYTOSIS 3+; OVALOCYTES 1+; POIKILOCYTOSIS 2+; TARGET CELLS SLIGHT; TEAR DROP CELLS SLIGHT
[2017-01-06 13:17] LABS: MEAN CORPUSCULAR VOLUME 63 fl (80-97)
--- NOTE | 2017-01-06 13:36 | RADIOLOGY REPORT (SQ) ---
EXAM DESCRIPTION: VENOUS UNILATERAL LOWER COMPLETED DATE/TIME: 01/06/2017 1:26 pm REASON FOR STUDY: right foot edema COMPARISON: None. TECHNIQUE: Dynamic and static piña scale and color images acquired of the right leg venous system. S elected spectral images acquired with additional compression and augmentation maneuvers. The contrala teral common femoral vein and saphenofemoral junction were also imaged. Images stored on PACS. LIMITATIONS: None. FINDINGS: COMMON FEMORAL: Normal phasicity, compression and augmentation. No visualized echogenic ma terial on piña scale. No defects on color images. FEMORAL: Normal compression and augmentation. No visualized echogenic material on piña scale. No defe cts on color images. POPLITEAL: Normal compression, augmentation. No visualized echogenic material on piña scale. No defec ts on color images. CALF VESSELS: Normal compression, augmentation. No visualized echogenic material on piña scale. No de fects on color images. GSV and SSV: Normal compression, augmentation. No visualized echogenic material on piña scale. No def ects on color images. ANY DEEP VENOUS INSUFFICIENCY: Not evaluated. ANY EVIDENCE OF POPLITEAL CYST: No. OTHER: No other significant finding. CONTRALATERAL COMMON FEMORAL VEIN AND SAPHENOFEMORAL JUNCTION: Normal phasicity, compression and augmentation. No visualized echogenic material on piña scale. No de fects on color images. IMPRESSION: NO EVIDENCE DVT OR SVT IN THE RIGHT LEG. TECHNICAL DOCUMENTATION: JOB ID: [id number] [employer]- All Rights Reserved
[2017-01-06] MEDS ORDERED: NORMAL SALINE 1000 ML 1,000 ML IV PRN (14:12)
--- NOTE | 2017-01-06 15:15 | EKG REPORT ---
SEVERITY:- ABNORMAL ECG - SINUS RHYTHM LVH BY VOLTAGE NONSPECIFIC T ABNORMALITIES, INFERIOR LEADS : Confirmed by: Teodora Whitlock MD 06-Jan-2017 15:15:00
[2017-01-06 15:27] VITALS: BP 127/85
== END 2017-01-06 15:44 | disposition home or self-care (01) ==
LOC: ER 11:53
DX: E86.0 Dehydration (principal); R00.1 Bradycardia, unspecified; L03.90 Cellulitis, unspecified; R60.9 Edema, unspecified; R42 Dizziness and giddiness; Z79.899 Other long term (current) drug therapy
CPT/HCPCS: 93005; 99285; 86900; 86901; 36415; 86850; 85025; 81025; 80053; 81001; 93971; 93010; J7030

== ENCOUNTER 2017-01-07 18:48 | Emergency (ER) | payer MEDICAID ==
--- NOTE | 2017-01-07 23:49 | ER Document Report ---
ED General - General Chief Complaint: Back Pain Stated Complaint: FALL/LOWER BACK PAIN Time Seen by Provider: 01/07/17 22:14 Notes: 28-year-old female presents with complaint of back pain. Patient says that she tripped up the stairs. She has pain in the lower back. Pain does not radiate into her legs. She does have previous history of back surgery at the age of 25. She is says that she has to still rides in her back. She said she had previous back surgery because "I was doing triathlons and my back could keep up with my lifestyle". Leg weakness or numbness. No loss of bowel control. No urinary retention. No other complaints at this time. TRAVEL OUTSIDE OF THE [place] IN LAST 30 DAYS: No - Related Data Allergies/Adverse Reactions: latex [Latex] Allergy (Intermediate, Verified 01/07/17 18:57) swelling Beer Allergy (Severe, Uncoded 01/07/17 18:57) Hives Tomatoes Allergy (Severe, Uncoded 01/07/17 18:57) Swelling all over Vikrill Stitch Adverse Reaction (Intermediate, Uncoded 01/07/17 18:57) Past Medical History - Social History Smoking Status: Unknown if Ever Smoked Frequency of alcohol use: None Drug Abuse: None Family History: Reviewed & Not Pertinent - Past Medical History Cardiac Medical History: Reports: Hx Hypertension Pulmonary Medical History: Reports: Hx Asthma Neurological Medical History: Reports: Hx Migraine, Hx Seizures - Grand Mal ( last one 2011) Endocrine Medical History: Reports: Hx Diabetes Mellitus Type 2 Renal/ Medical History: Reports: Hx Kidney Stones, Hx Ovarian Cysts. Denies: Hx Peritoneal Dialysis Musculoskeltal Medical History: Reports Hx Arthritis - Lower back, hands Psychiatric Medical History: Reports: Hx Attention Deficit Hyperactivity Disorder, Hx Bipolar Disorder Past Surgical History: Reports: Hx Orthopedic Surgery - Rods in back, Hx Tubal Ligation - Immunizations Hx Diphtheria, Pertussis, Tetanus Vaccination: Yes - 2005 Hx Pneumococcal Vaccination: 03/11/07 Review of Systems - Review of Systems Notes: My Normal Review Basic REVIEW OF SYSTEMS: CONSTITUTIONAL : Denies fever, chills, or sweats. Denies recent illness. GENITOURINARY: Denies difficulty urinating, painful urination, burning, frequency, or blood in urine. MUSCULOSKELETAL: Back pain SKIN: Denies rash or skin lesions. NEUROLOGICAL: Denies sensory or motor loss. ALL OTHER SYSTEMS REVIEWED AND NEGATIVE. Physical Exam - Vital signs Vitals: Temp Pulse Resp BP Pulse Ox 98.7 F 57 L 18 110/62 100 01/07/17 18:59 01/07/17 18:59 01/07/17 18:59 01/07/17 18:59 01/07/17 18:59 - Notes Notes: General Appearance: Well nourished, alert, cooperative, no acute distress, mild obvious discomfort. Vitals: reviewed, See vital signs table. Head: no swelling or tenderness to the head Eyes: PERRL, EOMI, Conjuctiva clear Extremities: strength 5/5 in all extremities, good pulses in all extremities, mild pain to palpation over the mid low back and bilateral lumbar paraspinal musculature. No step-offs or deformities. Patient is able stand and walk without difficulty. Good strength with plantar dorsiflexion of both feet. Good distal sensation. Skin: warm, dry, appropriate color, no rash Neuro: speech clear, oriented x 3, normal affect, responds appropriately to questions. Course - Re-evaluation Re-evalutation: 01/08/17 00:19 Patient's back exam is benign. X-ray showed no evidence of fracture or new injury. She has no weakness or numbness into her legs. She is able to walk without difficulty. She has had no urinary retention or loss of bowel control. I feel she is safe to be discharged home. Encouraged her follow-up closely with her primary care doctor tomorrow for reevaluation. I informed her not to lift anything heavy and not to over exert herself. Encouraged her return to ER if further concerns. Patient agrees with plan will be discharged home. Dictation of this chart was performed using voice recognition software; therefore, there may be some unintended grammatical errors. - Vital Signs Vital signs: Temp Pulse Resp BP Pulse Ox 98.7 F 57 L 18 110/62 100 01/07/17 18:59 01/07/17 18:59 01/07/17 18:59 01/07/17 18:59 01/07/17 18:59 Discharge - Discharge Clinical Impression: Low back pain Qualifiers: Chronicity: acute Back pain laterality: bilateral Sciatica presence: without sciatica Qualified Code(s): M54.5 - Low back pain Condition: Good Disposition: HOME, SELF-CARE Additional Instructions: Your xray of your back did not show any worrisome findings. please do not lift anything heavy over the next week. Please follow up with your doctor tomorrow for reevaluation. Please return to the ER if you have loss of control of your bowel movements, inability to urinate, fevers, leg weakness, or if you have further concerns. Referrals: CHERRY FISH MD [Primary Care Provider] - Follow up tomorrow
--- NOTE | 2017-01-08 00:10 | RADIOLOGY REPORT (SQ) ---
EXAM DESCRIPTION: L SPINE WHOLE COMPLETED DATE/TIME: 01/07/2017 11:52 pm REASON FOR STUDY: trauma COMPARISON: 12/06/2016. CT, 08/30/2015. NUMBER OF VIEWS: Five views including obliques. TECHNIQUE: AP, lateral, oblique, and sacral radiographic images acquired of the lumbar spine. LIMITATIONS: None. FINDINGS: MINERALIZATION: Normal. SEGMENTATION: Normal. No transitional anatomy. ALIGNMENT: Normal. VERTEBRAE: Maintained height. No fracture or worrisome bone lesion. DISCS: Mild lower thoracic disc desiccation. POSTERIOR ELEMENTS: Pedicles and facets are intact. No pars defect or posterior arch defects. HARDWARE: L4 through S1 posterior hardware fusion. L5-S1 intervertebral disc replacement. PARASPINAL SOFT TISSUES: Normal. PELVIS: Intact as visualized. No fractures or worrisome bone lesions. SI joints intact. OTHER: 2, 0.6 cm calcifications overlie, chronic the left inferior renal shadow consistent with nephr olithiasis is compared with prior CT, 08/30/2015. IMPRESSION: 1. No acute findings of the lumbar spine. L4-S1 hardware fusion. 2. Left nephrolithi asis. TECHNICAL DOCUMENTATION: JOB ID: [id number] [employer]- All Rights Reserved
[2017-01-08 00:24] VITALS: BP 112/68
== END 2017-01-08 00:20 | disposition home or self-care (01) ==
LOC: ER 18:48
DX: M54.5 Low back pain (principal); W10.9XXA Fall (on) (from) unspecified stairs and steps, initial encounter; E11.9 Type 2 diabetes mellitus without complications; I10 Essential (primary) hypertension; J45.909 Unspecified asthma, uncomplicated; Z98.890 Other specified postprocedural states; Z91.040 Latex allergy status; Z91.018 Allergy to other foods
CPT/HCPCS: 72110; 99283

== ENCOUNTER 2017-01-10 21:59 | Emergency (ER) | payer MEDICAID ==
[2017-01-10 22:38] LABS: ABSOLUTE EOSINOPHILS # (AUTO) 0.1 10^3/uL (0.0-0.6); ABSOLUTE LYMPHOCYTES (AUTO) 2.7 10^3/uL (0.5-4.7); ABSOLUTE MONOCYTES (AUTO) 0.4 10^3/uL (0.1-1.4); ABSOLUTE NEUT (AUTO) 4.8 10^3/uL (1.7-8.2); BASOPHILS % (AUTO) 0.5 % (0-2); EOSINOPHILS % (AUTO) 0.8 % (0-6); HEMATOCRIT 29.8 % (36.0-47.0); HEMOGLOBIN 9.2 g/dL (12.0-15.5); HGB HCT DIFFERENCE -2.2; LYMPHOCYTES % (AUTO) 33.5 % (13-45); MEAN CORPUSCULAR HEMOGLOBIN 20.1 pg (27.0-33.4); MEAN CORPUSCULAR HGB CONC 30.9 g/dL (32.0-36.0); MEAN CORPUSCULAR VOLUME 65 fl (80-97); MONOCYTES % (AUTO) 5.3 % (3-13); RED BLOOD COUNT 4.58 10^6/uL (3.72-5.28); RED CELL DISTRIBUTION WIDTH 30.7 % (11.5-14.0); SEGMENTED NEUTROPHILS % (AUTO) 59.9 % (42-78); WHITE BLOOD COUNT 7.9 10^3/uL (4.0-10.5)
[2017-01-10 22:59] LABS: ALANINE AMINOTRANSFERASE 27 U/L (9-52); ALBUMIN 4.2 g/dL (3.5-5.0); ALKALINE PHOSPHATASE 81 U/L (38-126); ANION GAP 14 (5-19); ASPARTATE AMINO TRANSFERASE 19 U/L (14-36); BILIRUBIN,DIRECT 0.3 mg/dL (0.0-0.4); BILIRUBIN,TOTAL 0.6 mg/dL (0.2-1.3); BLOOD UREA NITROGEN 7 mg/dL (7-20); CALCIUM 10.3 mg/dL (8.4-10.2); CARBON DIOXIDE 21 mmol/L (22-30); CHLORIDE 103 mmol/L (98-107); CREATININE RESULT 0.84 mg/dL (0.52-1.25); GLUCOSE 100 mg/dL (75-110); SODIUM 137.8 mmol/L (137-145); TOTAL PROTEIN 7.5 g/dL (6.3-8.2)
[2017-01-10 23:09] LABS: ANISOCYTOSIS 4+; HYPOCHROMASIA 2+; MICROCYTOSIS 3+; POIKILOCYTOSIS 1+
[2017-01-10 23:10] LABS: OVALOCYTES 1+; TARGET CELLS SLIGHT; TEAR DROP CELLS SLIGHT
[2017-01-10] MEDS ORDERED: MECLIZINE HCL 25 MG TABLET PO ONE (23:41)
--- NOTE | 2017-01-10 23:42 | ER Document Report ---
ED General - General Chief Complaint: Fainting Stated Complaint: FAINTING AND MEMORY PROBLEMS Time Seen by Provider: 01/10/17 23:27 Notes: Patient is a 36-year-old female who comes emergency department for chief complaint of feeling like she is having episodes of memory loss, she states she is laughing too much, she states that when she stands sometimes the room spins and she gets lightheaded. Patient states over the past month she has also passed out several times. Patient has a history of chronic iron deficiency anemia, is currently undergoing iron infusions for this. She also has a past medical history of bipolar disorder and ADHD. She had a CAT scan of the head within the past month that was normal reportedly. She denies any current symptoms. TRAVEL OUTSIDE OF THE [place] IN LAST 30 DAYS: No - Related Data Allergies/Adverse Reactions: latex [Latex] Allergy (Intermediate, Verified 01/07/17 18:57) swelling Beer Allergy (Severe, Uncoded 01/07/17 18:57) Hives Tomatoes Allergy (Severe, Uncoded 01/07/17 18:57) Swelling all over Vikrill Stitch Adverse Reaction (Intermediate, Uncoded 01/07/17 18:57) Past Medical History - General Information source: Patient - Social History Smoking Status: Never Smoker Drug Abuse: None Lives with: Family Family History: Reviewed & Not Pertinent Patient has suicidal ideation: No Patient has homicidal ideation: No - Past Medical History Cardiac Medical History: Reports: Hx Hypertension Pulmonary Medical History: Reports: Hx Asthma Neurological Medical History: Reports: Hx Migraine, Hx Seizures - Grand Mal ( last one 2011) Endocrine Medical History: Reports: Hx Diabetes Mellitus Type 2 Renal/ Medical History: Reports: Hx Kidney Stones, Hx Ovarian Cysts. Denies: Hx Peritoneal Dialysis Musculoskeltal Medical History: Reports Hx Arthritis - Lower back, hands Psychiatric Medical History: Reports: Hx Attention Deficit Hyperactivity Disorder, Hx Bipolar Disorder Past Surgical History: Reports: Hx Orthopedic Surgery - Rods in back, Hx Tubal Ligation - Immunizations Hx Diphtheria, Pertussis, Tetanus Vaccination: Yes - 2005 Hx Pneumococcal Vaccination: 03/11/07 Review of Systems - Review of Systems Constitutional: No symptoms reported EENT: No symptoms reported Cardiovascular: See HPI Respiratory: No symptoms reported Gastrointestinal: No symptoms reported Genitourinary: No symptoms reported Female Genitourinary: No symptoms reported Musculoskeletal: No symptoms reported Skin: No symptoms reported Hematologic/Lymphatic: No symptoms reported Neurological/Psychological: See HPI Physical Exam - Vital signs Vitals: Temp Pulse Resp BP Pulse Ox 98.5 F 60 18 110/58 L 99 01/10/17 22:09 01/10/17 22:09 01/10/17 22:09 01/10/17 22:09 01/10/17 22:09 Interpretation: Normal - General General appearance: Appears well, Alert - HEENT Head: Normocephalic, Atraumatic Eyes: Normal Pupils: PERRL - Respiratory Respiratory status: No respiratory distress Chest status: Nontender. No: Tender Breath sounds: Normal. No: Decreased air movement, Wheezing Chest palpation: Normal - Cardiovascular Rhythm: Regular. No: Tachycardia Heart sounds: Normal auscultation, S1 appreciated, S2 appreciated Murmur: No - Abdominal Inspection: Normal Distension: No distension Bowel sounds: Normal Tenderness: Nontender. No: Tender, Guarding Organomegaly: No organomegaly - Back Back: Normal, Nontender. No: Tender, CVA tenderness - Extremities General upper extremity: Normal inspection, Nontender, Normal color, Normal ROM , Normal temperature General lower extremity: Normal inspection, Nontender, Normal color, Normal ROM , Normal temperature, Normal weight bearing. 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 She answers questions appropriately, she cooperates with a normal neurological exam. Patient ambulated with a normal and steady gait. Patient is alert and oriented 4. Patient has had extensive and multiple re-evaluations within the past several weeks including labs, EKGs, and CT of the head. CBC shows significant improvement in patient's hemoglobin after recent transfusion and iron infusions, current hemoglobin is 9.2. Chemistry unremarkable, thyroid screening in normal range, urine contaminated. Patient is currently on Bactrim antibiotic. Urine culture placed. Depakote level only slightly low and patient is due for a dose. On reexamination patient sleeping, after awakening she states that she doesn't feel any different. Vitals signs unremarkable. I suspect no emergent abnormality based on patient's presentation , examination, and workup. I did recommend patient follow-up with neurology for additional evaluation, I discussed workup and return precautions in detail, patient states understanding and agreement. - Vital Signs Vital signs: Temp Pulse Resp BP Pulse Ox 98.5 F 66 18 110/58 L 98 01/10/17 22:09 01/11/17 00:31 01/11/17 00:31 01/10/17 22:09 01/11/17 00:31 - Laboratory Result Diagrams: 01/10/17 22:11 01/10/17 22:11 Laboratory results interpreted by me: 01/10/17 01/10/17 01/10/17 22:11 22:11 22:11 Hgb 9.2 L Hct 29.8 L MCV 65 L MCH 20.1 L MCHC 30.9 L RDW 30.7 H Carbon Dioxide 21 L Calcium 10.3 H Urine Urobilinogen 4.0 H Ur Leukocyte Esterase SMALL H Valproic Acid 01/10/17 22:11 Hgb Hct MCV MCH MCHC RDW Carbon Dioxide Calcium Urine Urobilinogen Ur Leukocyte Esterase Valproic Acid 46.8 L Discharge - Discharge Clinical Impression: Light headedness, Difficulty concentrating Condition: Stable Disposition: HOME, SELF-CARE Additional Instructions: Your hemoglobin is 9.2 tonight. We have a urine culture growing in our lab. No obvious abnormalities are noted on your examination and workup tonight. Follow up with your Neurologist for additional evaluation. Return ot the ED for concerning symptoms - headache, chest pain, difficulty breathing, fever, weakness on one side, numbness, passing out, vomiting, etc.
[2017-01-10 23:45] LABS: APPEARANCE,URINE CLOUDY; BILIRUBIN,URINE NEGATIVE (NEGATIVE); GLUCOSE, URINE NEGATIVE (NEGATIVE); KETONES,URINE NEGATIVE (NEGATIVE); LEUKOCYTE ESTERASE,URINE SMALL (NEGATIVE); NITRITE,URINE NEGATIVE (NEGATIVE); PROTEIN,URINE NEGATIVE (NEGATIVE); URINE SPECIFIC GRAVITY 1.023
[2017-01-11 01:56] VITALS: BP 103/58
== END 2017-01-11 01:53 | disposition home or self-care (01) ==
LOC: ER 21:59
DX: R42 Dizziness and giddiness (principal); R29.818 Other symptoms and signs involving the nervous system; F31.9 Bipolar disorder, unspecified; R55 Syncope and collapse; R41.3 Other amnesia; I10 Essential (primary) hypertension; J45.909 Unspecified asthma, uncomplicated; E11.9 Type 2 diabetes mellitus without complications; Z91.040 Latex allergy status; Z91.018 Allergy to other foods
CPT/HCPCS: 36415; 80053; 80164; 81001; 81025; 84443; 85025; 87086; 99284

== ENCOUNTER 2017-01-12 17:15 | Emergency (ER) | payer MEDICAID ==
--- NOTE | 2017-01-12 17:42 | ER Document Report ---
ED General - General Chief Complaint: Dizziness Stated Complaint: DIZZINESS Time Seen by Provider: 01/12/17 17:30 Notes: Patient is a 36-year-old female, past medical history hypertension, ADHD, bipolar, presents with 3 months of intermittent lightheadedness and forgetfulness. She has been seen in the emergency room 5 times for the symptoms including 4 days this. She saw her neurologist, Dr. Higuera, 2 days ago for her forgetfulness symptoms and she is supposed to have an MRI and EEG as an outpatient. She is requesting the MRI today. She denies focal weakness, numbness, tingling, chest pain, shortness of breath, syncope, hallucination, suicidal ideation, homicidal ideation, fevers, neck stiffness or headache. TRAVEL OUTSIDE OF THE [place] IN LAST 30 DAYS: No - Related Data Allergies/Adverse Reactions: latex [Latex] Allergy (Intermediate, Verified 01/07/17 18:57) swelling Beer Allergy (Severe, Uncoded 01/07/17 18:57) Hives Tomatoes Allergy (Severe, Uncoded 01/07/17 18:57) Swelling all over Vikrill Stitch Adverse Reaction (Intermediate, Uncoded 01/07/17 18:57) Past Medical History - General Information source: Patient - Social History Smoking Status: Current Every Day Smoker Family History: Reviewed & Not Pertinent - Past Medical History Cardiac Medical History: Reports: Hx Hypertension Pulmonary Medical History: Reports: Hx Asthma Neurological Medical History: Reports: Hx Migraine, Hx Seizures - Grand Mal ( last one 2011) Endocrine Medical History: Reports: Hx Diabetes Mellitus Type 2 Renal/ Medical History: Reports: Hx Kidney Stones, Hx Ovarian Cysts. Denies: Hx Peritoneal Dialysis Musculoskeltal Medical History: Reports Hx Arthritis - Lower back, hands Psychiatric Medical History: Reports: Hx Attention Deficit Hyperactivity Disorder, Hx Bipolar Disorder Past Surgical History: Reports: Hx Orthopedic Surgery - Rods in back, Hx Tubal Ligation - Immunizations Hx Diphtheria, Pertussis, Tetanus Vaccination: Yes - 2005 Hx Pneumococcal Vaccination: 03/11/07 Review of Systems - Review of Systems Notes: REVIEW OF SYSTEMS: CONSTITUTIONAL: -fevers, -chills EENT: -eye pain, -difficulty swallowing, -nasal congestion CARDIOVASCULAR:-chest pain, -syncope. RESPIRATORY: -cough, -SOB GASTROINTESTINAL: -abdominal pain, - nausea, -vomiting, -diarrhea GENITOURINARY: -dysuria, -hematuria MUSCULOSKELETAL: -back pain, -neck pain SKIN: -rash or skin lesions. HEMATOLOGIC: -easy bruising or bleeding. LYMPHATIC: -swollen, enlarged glands. NEUROLOGICAL: +forgetfullness, -headache PSYCHIATRIC: -anxiety, -depression. ALL OTHER SYSTEMS REVIEWED AND NEGATIVE. Physical Exam - Vital signs Vitals: Temp Pulse Resp BP Pulse Ox 98.8 F 60 18 108/60 98 01/12/17 17:42 01/12/17 17:42 01/12/17 17:42 01/12/17 17:42 01/12/17 17:42 - Notes Notes: PHYSICAL EXAMINATION: GENERAL: Well-appearing, well-nourished and in no acute distress. HEAD: Atraumatic, normocephalic. EYES: Pupils equal round and reactive to light, extraocular movements intact, sclera anicteric, conjunctiva are normal. ENT: nares patent, oropharynx clear without exudates. Moist mucous membranes. NECK: Normal range of motion, supple without lymphadenopathy LUNGS: Breath sounds clear to auscultation bilaterally and equal. No wheezes rales or rhonchi. HEART: Regular rate and rhythm without murmurs ABDOMEN: Soft, nontender, normoactive bowel sounds. No guarding, no rebound. No masses appreciated. EXTREMITIES: Normal range of motion, no pitting or edema. No cyanosis. NEUROLOGICAL: Cranial nerves grossly intact. Normal speech, normal gait. Normal sensory and motor exams. AAOx4. Short and terminal carman memory intact. PSYCH: Normal mood, normal affect. SKIN: Warm, Dry, normal turgor, no rashes or lesions noted. Course - Re-evaluation Re-evalutation: Patient has had multiple workups including urine, blood work, EKG and CAT scan to assess emergent causes of her forgetfulness. She saw her neurologist 2 days ago and is supposed to be scheduled for an MRI and EEG as an outpatient. Unable to obtain MRI in the emergency room at this time there is no emergent issues identified. Today's EKG, urine and blood work are all unremarkable. On my exam, she had intact short-term and long-term memory and is able to remember her kids names. Instructed her to drink plenty of fluids and follow-up with the neurologist. - Vital Signs Vital signs: Temp Pulse Resp BP Pulse Ox 98.8 F 60 18 108/60 98 01/12/17 17:42 01/12/17 17:42 01/12/17 17:42 01/12/17 17:42 01/12/17 17:42 Discharge - Discharge Clinical Impression: Forgetfulness Condition: Stable Additional Instructions: Continue to follow-up with your neurologist for further evaluation of your forgetfulness. There are no emergent causes at this time. Schedule your MRI and EEG with the neurology office. Referrals: ERINN HIGUERA MD [EMERITUS] - Follow up as needed
[2017-01-12 18:37] LABS: ABSOLUTE EOSINOPHILS # (AUTO) 0.1 10^3/uL (0.0-0.6); ABSOLUTE LYMPHOCYTES (AUTO) 2.3 10^3/uL (0.5-4.7); ABSOLUTE MONOCYTES (AUTO) 0.3 10^3/uL (0.1-1.4); ABSOLUTE NEUT (AUTO) 4.5 10^3/uL (1.7-8.2); BASOPHILS % (AUTO) 0.7 % (0-2); HEMATOCRIT 29.8 % (36.0-47.0); HEMOGLOBIN 9.2 g/dL (12.0-15.5); HGB HCT DIFFERENCE -2.2; LYMPHOCYTES % (AUTO) 31.4 % (13-45); MEAN CORPUSCULAR HEMOGLOBIN 20.2 pg (27.0-33.4); MEAN CORPUSCULAR HGB CONC 30.8 g/dL (32.0-36.0); MEAN CORPUSCULAR VOLUME 66 fl (80-97); MONOCYTES % (AUTO) 4.5 % (3-13); RED BLOOD COUNT 4.54 10^6/uL (3.72-5.28); RED CELL DISTRIBUTION WIDTH 30.4 % (11.5-14.0); SEGMENTED NEUTROPHILS % (AUTO) 62.4 % (42-78); WHITE BLOOD COUNT 7.2 10^3/uL (4.0-10.5)
[2017-01-12 18:43] LABS: APPEARANCE,URINE CLOUDY; BILIRUBIN,URINE NEGATIVE (NEGATIVE); GLUCOSE, URINE NEGATIVE (NEGATIVE); KETONES,URINE NEGATIVE (NEGATIVE); LEUKOCYTE ESTERASE,URINE TRACE (NEGATIVE); NITRITE,URINE NEGATIVE (NEGATIVE); PROTEIN,URINE 100 mg/dL (NEGATIVE)
[2017-01-12 18:54] LABS: ALANINE AMINOTRANSFERASE 24 U/L (9-52); ALKALINE PHOSPHATASE 81 U/L (38-126); ANION GAP 11 (5-19); ASPARTATE AMINO TRANSFERASE 21 U/L (14-36); BILIRUBIN,DIRECT 0.3 mg/dL (0.0-0.4); BILIRUBIN,TOTAL 0.5 mg/dL (0.2-1.3); BLOOD UREA NITROGEN 10 mg/dL (7-20); CALCIUM 9.9 mg/dL (8.4-10.2); CARBON DIOXIDE 22 mmol/L (22-30); CHLORIDE 103 mmol/L (98-107); CREATININE RESULT 0.78 mg/dL (0.52-1.25); GLUCOSE 99 mg/dL (75-110); POTASSIUM 4.2 mmol/L (3.6-5.0); SODIUM 136.4 mmol/L (137-145); TOTAL PROTEIN 7.3 g/dL (6.3-8.2)
--- NOTE | 2017-01-12 19:00 | EKG REPORT ---
SEVERITY:- ABNORMAL ECG - SINUS RHYTHM LEFT VENTRICULAR HYPERTROPHY BORDERLINE T ABNORMALITIES, INFERIOR LEADS : Confirmed by: Felipe Chambers MD 12-Jan-2017 18:59:22
[2017-01-12 19:01] LABS: ANISOCYTOSIS 4+; HYPOCHROMASIA 2+; MICROCYTOSIS 2+; OVALOCYTES 2+; POIKILOCYTOSIS 1+; POLYCHROMASIA SLIGHT; TARGET CELLS 1+; TEAR DROP CELLS SLIGHT
[2017-01-12] MEDS ORDERED: ONDANSETRON 4 MG TAB.RAPDIS PO ONE (19:18)
[2017-01-12 19:22] VITALS: BP 101/64
== END 2017-01-12 19:23 | disposition home or self-care (01) ==
LOC: ER 17:15
DX: R41.3 Other amnesia (principal); I10 Essential (primary) hypertension; R42 Dizziness and giddiness; E11.9 Type 2 diabetes mellitus without complications; J45.909 Unspecified asthma, uncomplicated; F17.200 Nicotine dependence, unspecified, uncomplicated; Z91.048 Other nonmedicinal substance allergy status; Z91.018 Allergy to other foods
CPT/HCPCS: 93005; 99284; 36415; 85025; 81025; 80053; 81001; 93010; S0119

== ENCOUNTER 2017-01-14 13:43 | Emergency (ER) | payer MEDICAID ==
[2017-01-14 14:20] VITALS: BP 105/52
[2017-01-14] MEDS ORDERED: NYSTATIN/TRIAMCIN OINTMENT 15 GM TP ONE (14:37)
--- NOTE | 2017-01-14 14:43 | ER Document Report ---
ED Skin Rash/Insect Bite/Abscs - General Chief Complaint: Skin Problem Stated Complaint: ABDOMINAL PAIN Time Seen by Provider: 01/14/17 14:34 Mode of Arrival: Ambulatory Notes: 36-year-old female presents to ED for complaint of itching and soreness to the lower left abdomen area between her skin folds. She said she was diagnosed with a yeast infection by her PCP and has been taken Diflucan with no improvement. The area is very moist and excoriated. States that the infection started several days after starting Macrobid for UTI. TRAVEL OUTSIDE OF THE [place] IN LAST 30 DAYS: No - HPI Patient complains to provider of: Other - Excoriated area between her skin folds left lower abdomen. Onset: Other - 10 day Onset/Duration: Gradual, Worse Quality of pain: Burning Severity: Severe Pain Level: 5 Skin Character: Other - Skin irritation between skin folds lower left abdomen Quality of rash: Itchy, Painful, Burning Identify cause: Yes Exacerbated by: Denies Relieved by: Denies Similar symptoms previously: Yes Recently seen / treated by doctor: Yes - Related Data Allergies/Adverse Reactions: latex [Latex] Allergy (Intermediate, Verified 01/14/17 14:20) swelling Beer Allergy (Severe, Uncoded 01/07/17 18:57) Hives Tomatoes Allergy (Severe, Uncoded 01/07/17 18:57) Swelling all over Vikrill Stitch Adverse Reaction (Intermediate, Uncoded 01/07/17 18:57) Past Medical History - General Information source: Patient - Social History Smoking Status: Current Every Day Smoker Cigarette use (# per day): Yes Chew tobacco use (# tins/day): No Smoking Education Provided: Yes - Less than 2 minute Frequency of alcohol use: None Drug Abuse: None Lives with: Family Family History: Reviewed & Not Pertinent Patient has suicidal ideation: No Patient has homicidal ideation: No - Past Medical History Cardiac Medical History: Reports: Hx Hypertension Pulmonary Medical History: Reports: Hx Asthma Neurological Medical History: Reports: Hx Migraine, Hx Seizures - Grand Mal ( last one 2011) Endocrine Medical History: Reports: Hx Diabetes Mellitus Type 2 Renal/ Medical History: Reports: Hx Kidney Stones, Hx Ovarian Cysts Malignancy Medical History: Reports: None GI Medical History: Reports: None Musculoskeltal Medical History: Reports Hx Arthritis - Lower back, hands Skin Medical History: Reports Hx Cellulitis Psychiatric Medical History: Reports: Hx Attention Deficit Hyperactivity Disorder, Hx Bipolar Disorder Traumatic Medical History: Reports: None Infectious Medical History: Reports: None Past Surgical History: Reports: Hx Orthopedic Surgery - Rods in back, Hx Tubal Ligation - Immunizations Hx Diphtheria, Pertussis, Tetanus Vaccination: Yes - 2005 Hx Pneumococcal Vaccination: 03/11/07 Review of Systems - Review of Systems Constitutional: No symptoms reported EENT: No symptoms reported Cardiovascular: No symptoms reported Respiratory: No symptoms reported Gastrointestinal: No symptoms reported Genitourinary: No symptoms reported Female Genitourinary: No symptoms reported Musculoskeletal: No symptoms reported Skin: Other - Skin irritation between the skin folds on the left lower abdomen Hematologic/Lymphatic: No symptoms reported Neurological/Psychological: No symptoms reported -: Yes All other systems reviewed and negative Physical Exam - Vital signs Vitals: Temp Pulse Resp BP Pulse Ox 98.8 F 72 16 105/52 L 97 01/14/17 14:14 01/14/17 14:14 01/14/17 14:14 01/14/17 14:14 01/14/17 14:14 Interpretation: Normal - General General appearance: Appears well, Alert - HEENT Head: Normocephalic, Atraumatic Eyes: Normal Pupils: PERRL - Respiratory Respiratory status: No respiratory distress Chest status: Nontender Breath sounds: Normal Chest palpation: Normal - Cardiovascular Rhythm: Regular Heart sounds: Normal auscultation Murmur: No - Abdominal Inspection: Normal Distension: No distension Bowel sounds: Normal Tenderness: Nontender Organomegaly: No organomegaly - Back Back: Normal, Nontender - Extremities General upper extremity: Normal inspection, Nontender, Normal color, Normal ROM , Normal temperature General lower extremity: Normal inspection, Nontender, Normal color, Normal ROM , Normal temperature, Normal weight bearing. No: Andrzej's sign - Neurological Neuro grossly intact: Yes Cognition: Normal Orientation: AAOx4 Jenna Coma Scale Eye Opening: Spontaneous Jenna Coma Scale Verbal: Oriented [place] Coma Scale Motor: Obeys Commands [place] Coma Scale Total: 15 Speech: Normal Motor strength normal: LUE, RUE, LLE, RLE Sensory: Normal - Psychological Associated symptoms: Normal affect, Normal mood - Skin Skin Temperature: Warm Skin Moisture: Dry Skin Color: Normal Location of irregularity: Abdomen - Left lower skin fold Character of irregularity: Erythematous Irregularity with: Tenderness, Inflammation Course - Vital Signs Vital signs: Temp Pulse Resp BP Pulse Ox 98.8 F 72 16 105/52 L 97 01/14/17 14:14 01/14/17 14:14 01/14/17 14:14 01/14/17 14:14 01/14/17 14:14 Discharge - Discharge Clinical Impression: Yeast dermatitis Condition: Stable Disposition: HOME, SELF-CARE Instructions: Family Physicians / Practices Additional Instructions: YEAST INFECTION: You have evidence of a yeast infection -- called "melanie." A vaginal yeast infection often causes itching. While not dangerous, it can be very unpleasant. A yeast infection often follows the use of powerful antibiotics. It is more likely to occur in diabetics. The treatment now is usually a single pill of Diflucan, but also an antifungal cream . Recurrences are common. You can make a recurrence less likely by wearing cotton underwear and avoiding tight clothing. If the symptoms do not resolve, you should follow up for re-examination. Sometimes treatment of the sexual partner is necessary if infections are recurrent. You well with Dial soap and rinsed well and pat dry and if you have a assistant hairstylist with a low setting dry with the dryer and then apply your antifungal cream Mycolog. FOLLOW-UP CARE: If you have been referred to a physician for follow-up care, call the physician s office for an appointment as you were instructed or within the next two days. If you experience worsening or a significant change in your symptoms, notify the physician immediately or return to the Emergency Department at any time for re-evaluation. Prescriptions: Nystatin/Triamcin [Mycolog-II Ointment] 1 applic TP TID #1 tube Forms: Smoking Cessation Education Referrals: MERLYN SALAZAR FNP-C [Primary Care Provider] - Follow up as needed
== END 2017-01-14 15:49 | disposition home or self-care (01) ==
LOC: ER 13:43
DX: B37.2 Candidiasis of skin and nail (principal); R10.32 Left lower quadrant pain; E11.9 Type 2 diabetes mellitus without complications; I10 Essential (primary) hypertension; J45.909 Unspecified asthma, uncomplicated; F17.210 Nicotine dependence, cigarettes, uncomplicated; Z71.6 Tobacco abuse counseling; Z87.440 Personal history of urinary (tract) infections; Z91.040 Latex allergy status; Z91.018 Allergy to other foods
CPT/HCPCS: 99283; J3490

== ENCOUNTER 2017-01-26 22:18 | Emergency (ER) | payer MEDICAID ==
[2017-01-26 22:51] VITALS: BP 123/65
[2017-01-26] MEDS ORDERED: ASPIRIN 81 MG TABLET, CHEWABLE PO ONE (22:51)
--- NOTE | 2017-01-27 00:10 | ER Document Report ---
ED General - General Chief Complaint: Epigastric Pain Stated Complaint: REPRODUCIBLE CHEST PAIN Time Seen by Provider: 01/27/17 00:05 Notes: Patient is a 36-year-old female who presents with complaint of left lower rib pain. She has started earlier today when she was helping move stuff. She is on it hurt worse when she was laughing. She says if she takes deep breath her left ear hurts in her ribs over a pinpoint location. No abdominal pain. No fevers. No infections. No other complaints at this time. She is only other request is that I read her MRI of her brain. She is followed by neurologist Dr. Higuera. He ordered MRI of her brain. It was performed yesterday. She got a copy of the CDs. She asked me to read it for her. I informed her that I am not a radiologist and do not know how to read MRIs of the brain in any detail and therefore I would not be the appropriate physician to read this for her. I informed her she needs to follow-up with Dr. Higuera to get the report from the radiologist or call his office herself. TRAVEL OUTSIDE OF THE [place] IN LAST 30 DAYS: No - Related Data Allergies/Adverse Reactions: latex [Latex] Allergy (Intermediate, Verified 01/26/17 22:47) swelling Beer Allergy (Severe, Uncoded 01/07/17 18:57) Hives Tomatoes Allergy (Severe, Uncoded 01/07/17 18:57) Swelling all over Vikrill Stitch Adverse Reaction (Intermediate, Uncoded 01/07/17 18:57) Past Medical History - Social History Smoking Status: Unknown if Ever Smoked Frequency of alcohol use: None Drug Abuse: None Family History: Reviewed & Not Pertinent - Past Medical History Cardiac Medical History: Reports: Hx Hypertension Pulmonary Medical History: Reports: Hx Asthma Neurological Medical History: Reports: Hx Migraine, Hx Seizures - Grand Mal ( last one 2011) Endocrine Medical History: Reports: Hx Diabetes Mellitus Type 2 Renal/ Medical History: Reports: Hx Kidney Stones, Hx Ovarian Cysts. Denies: Hx Peritoneal Dialysis Musculoskeltal Medical History: Reports Hx Arthritis - Lower back, hands Skin Medical History: Reports Hx Cellulitis Psychiatric Medical History: Reports: Hx Attention Deficit Hyperactivity Disorder, Hx Bipolar Disorder Past Surgical History: Reports: Hx Orthopedic Surgery - Rods in back, Hx Tubal Ligation - Immunizations Hx Diphtheria, Pertussis, Tetanus Vaccination: Yes - 2005 Hx Pneumococcal Vaccination: 03/11/07 Review of Systems - Review of Systems Notes: My Normal Review Basic REVIEW OF SYSTEMS: CONSTITUTIONAL : Denies fever, chills, or sweats. Denies recent illness. CARDIOVASCULAR: Left rib pain. No anterior chest pain. RESPIRATORY: Denies cough, cold, or chest congestion. Denies shortness of breath, difficulty breathing, or wheezing. GASTROINTESTINAL: Denies abdominal pain. Denies nausea, vomiting, or diarrhea. MUSCULOSKELETAL: Denies neck or back pain or joint pain or swelling. SKIN: Denies rash or skin lesions. NEUROLOGICAL: Denies altered mental status or loss of consciousness. Denies headache. Denies weakness or paralysis or loss of use of either side. Denies problems with gait or speech. Denies sensory or motor loss. ALL OTHER SYSTEMS REVIEWED AND NEGATIVE. Physical Exam - Vital signs Vitals: Temp Pulse Resp BP Pulse Ox 98.8 F 68 20 123/65 94 01/26/17 22:47 01/26/17 22:47 01/26/17 22:47 01/26/17 22:47 01/26/17 22:47 - Notes Notes: General Appearance: Well nourished, alert, cooperative, no acute distress, no obvious discomfort. Vitals: reviewed, See vital signs table. Eyes: PERRL, EOMI, Conjuctiva clear Lungs: No wheezing, No rales, No rhonci, No accessory muscle use, good air exchange bilaterally. Heart: Normal rate, Regular rythm, No murmur, no rub Chest wall: Patient has an area of pinpoint pain to palpation over left lower ribs at the costochondral junction. She has no further pain to palpation anywhere other than this point point area. Pain is easily reproducible with movement and taking a deep breath as well. There is no redness or swelling of the area. No rash. No pain to palpation of the abdomen below the ribs. Abdomen: Normal BS, soft, No rigidity, No abdominal tenderness, No guarding, no rebound, no abdominal masses, no organomegaly Extremities: strength 5/5 in all extremities, good pulses in all extremities, no swelling or tenderness in the extremities, no edema. Skin: warm, dry, appropriate color, no rash Neuro: speech clear, oriented x 3, normal affect, responds appropriately to questions. Course - Re-evaluation Re-evalutation: 01/27/17 02:57 Patient has what appears to be musculoskeletal chest pain that is pinpoint over left lower rib and is reproducible with palpation movement. Chest x-ray is negative for any infiltrate or rib fracture. Patient will be discharged home on Naprosyn. I encouraged her follow-up with her doctor for reevaluation 3-4 days. I encouraged her follow-up with her neurologist, Dr. Higuera, to get the results of the read on her MRI. Patient agrees with the plan and will be discharged home. Dictation of this chart was performed using voice recognition software; therefore, there may be some unintended grammatical errors. - Vital Signs Vital signs: Temp Pulse Resp BP Pulse Ox 98.8 F 68 20 123/65 94 01/26/17 22:47 01/26/17 22:47 01/26/17 22:47 01/26/17 22:47 01/26/17 22:47 - EKG Interpretation by Me Additional EKG results interpreted by me: 01/27/17 00:09 EKG is reviewed and interpreted by me. EKG shows normal sinus rhythm with rate of [address] segment elevation or depression. No ischemic T-wave inversions. KS interval, QRS duration, QTc intervals are within normal range. No old EKG available for comparison. Discharge - Discharge Clinical Impression: Rib pain on left side Condition: Good Disposition: HOME, SELF-CARE Additional Instructions: You have pain that is over her left lower rib. This is usually related to a rib contusion or subluxation. Your x-ray showed no evidence of fracture. The lung conte on your x-ray were normal-appearing. I will place you on anti- inflammatory pain medication which should help your pain. Please take the medication with food. You will also be discharged with something called a incentive spirometer. This is a small device that she use every 30 minutes to take a full deep breath to help prevent small collapses in your lung that could lead to pneumonia. Please follow-up with your doctor in 3-4 days for reevaluation. Please return to ER immediately if you have worsening pain, difficulty breathing, or fevers. Prescriptions: Naproxen [Naprosyn 250 mg Tablet] 250 mg PO BID #20 tablet
--- NOTE | 2017-01-27 02:13 | RADIOLOGY REPORT (SQ) ---
EXAM DESCRIPTION: RIBS LEFT W/PA CHEST COMPLETED DATE/TIME: 01/27/2017 1:35 am REASON FOR STUDY: rib pain COMPARISON: None. TECHNIQUE: Frontal view of the chest and additional views of the left ribs acquired. NUMBER OF VIEWS: Three view. LIMITATIONS: None. FINDINGS: FRONTAL CXR: No pneumothorax. No pleural effusion. No consolidate. RIBS: No displaced rib fractures. No lytic or blastic bony lesions. OTHER: No other significant finding. IMPRESSION: NO PNEUMOTHORAX. NO DISPLACED RIB FRACTURES. COMMENT: SITE OF TRAUMA/COMPLAINT MARKED/STAMP COMPLETED: NO. TECHNICAL DOCUMENTATION: JOB ID: [id number] [employer]- All Rights Reserved
--- NOTE | 2017-01-27 07:31 | EKG REPORT ---
SEVERITY:- BORDERLINE ECG - SINUS RHYTHM BORDERLINE T ABNORMALITIES, DIFFUSE LEADS : Confirmed by: Felipe Chambers MD 27-Jan-2017 07:30:44
== END 2017-01-27 03:11 | disposition home or self-care (01) ==
LOC: ER 22:18
DX: R07.81 Pleurodynia (principal); R10.13 Epigastric pain
CPT/HCPCS: 93005; 93010; 99284

== ENCOUNTER 2017-09-13 08:34 | Emergency (ER) | payer MEDICAID ==
[2017-09-13 08:42] VITALS: BP 122/67
[2017-09-13] MEDS ORDERED: OXYCODONE-ACETAMINOPHEN 5-325 MG TABLET PO ONE (09:42)
--- NOTE | 2017-09-13 10:39 | RADIOLOGY REPORT (SQ) ---
EXAM DESCRIPTION: L SPINE 2 VIEWS COMPLETED DATE/TIME: 09/13/2017 10:23 am REASON FOR STUDY: fall, back pain, hx rods COMPARISON: Lumbar spine films 12/31/2012, 11/28/2016, 01/07/2017 NUMBER OF VIEWS: Two views. TECHNIQUE: AP and lateral radiographic images acquired of the lumbar spine. LIMITATIONS: None. FINDINGS: MINERALIZATION: Normal. SEGMENTATION: Normal. No transitional anatomy. ALIGNMENT: Normal. VERTEBRAE: Maintained height. No fracture or worrisome bone lesion. DISCS: Post fusion at L4-5 and L5-S1 POSTERIOR ELEMENTS: Bilateral laminectomy at L5. HARDWARE: Bilateral transpedicular screws and dorsal fixation plates at L4-L5 and S1. Metallic disc spacer prosthesis at L5-S1. PARASPINAL SOFT TISSUES: Normal. PELVIS: Not included in the field of view. Mild sclerosis along the SI joints OTHER: Bilateral intrarenal nonobstructive calculi are present IMPRESSION: No acute fracture or malalignment. Prior fusion at L4-5 and L5-S1 Bilateral intrarenal kidney stones TECHNICAL DOCUMENTATION: JOB ID: [id number] [employer]- All Rights Reserved Reading location - IP/workstation name: [email or web address]
--- NOTE | 2017-09-13 10:42 | RADIOLOGY REPORT (SQ) ---
EXAM DESCRIPTION: T SPINE AP/LAT COMPLETED DATE/TIME: 09/13/2017 10:23 am REASON FOR STUDY: fall, back pain, hx rods COMPARISON: None. NUMBER OF VIEWS: Two views. TECHNIQUE: AP and lateral radiographic images acquired of the thoracic spine. LIMITATIONS: None. FINDINGS: MINERALIZATION: Osteopenic ALIGNMENT: From the top of T4 to the bottom of T8 there is 20 of convex rightward thoracic curvature . From the top of T9 to the bottom of T12, there is 13 of convex leftward thoracic curvature. VERTEBRAE: No fracture or bone lesion. Maintained height, normal segmentation. DISCS: Mild diffuse disc space loss of height in the thoracic spine. HARDWARE: None in the spine. MEDIASTINUM AND SOFT TISSUES: Normal heart size and aortic contour. No soft tissue abnormality. VISUALIZED LUNG BATES: Clear. OTHER: No other significant finding. IMPRESSION: No acute changes TECHNICAL DOCUMENTATION: JOB ID: [id number] [employer]- All Rights Reserved Reading location - IP/workstation name: [email or web address]
--- NOTE | 2017-09-13 10:46 | RADIOLOGY REPORT (SQ) ---
EXAM DESCRIPTION: SACRUM AND COCCYX COMPLETED DATE/TIME: 09/13/2017 10:23 am REASON FOR STUDY: fall, back pain, hx rods COMPARISON: CT abdomen and pelvis 01/26/2016 NUMBER OF VIEWS: Three views. TECHNIQUE: AP, lateral, and tilt views of the sacrum and coccyx. LIMITATIONS: None. FINDINGS: MINERALIZATION: Normal. BONES: Mild bilateral SI joint sclerosis. No acute fracture or dislocation. No worrisome bone lesio ns. Hardware with bilateral transpedicular screws and dorsal fixation plates at L4-5 and L5-S1. Old bilateral L5 laminectomy. SOFT TISSUES: No soft tissue swelling. No foreign body. OTHER: No other significant finding. IMPRESSION: Bilateral mild SI joint sclerosis. Old lower lumbar fusion TECHNICAL DOCUMENTATION: JOB ID: [id number]- All Rights Reserved Reading location - IP/workstation name: [email or web address]
--- NOTE | 2017-09-13 11:07 | ER Document Report ---
ED General Pain - General Chief Complaint: Back Injury Stated Complaint: BACK PAIN Time Seen by Provider: 09/13/17 09:28 Mode of Arrival: Ambulatory Information source: Patient Notes: Patient is a 37-year-old female who presents to the ER today for back pain, tailbone pain after falling yesterday, after her left leg went numb on her. Patient states that this is normal for her she has had effusion in the past and sometimes her left leg has some numbness and tingling to it. Patient states that she lost her footing because of the numbness and fell on her bottom. Patient admits to pain to the tailbone, low and upper back. She denies any loss of bladder or bowel function, pain radiating anywhere else. TRAVEL OUTSIDE OF THE [place] IN LAST 30 DAYS: No - Related Data Allergies/Adverse Reactions: latex [Latex] Allergy (Intermediate, Verified 09/13/17 09:10) swelling Beer Allergy (Severe, Uncoded 09/13/17 09:10) Hives Tomatoes Allergy (Severe, Uncoded 09/13/17 09:10) Swelling all over Vikrill Stitch Adverse Reaction (Intermediate, Uncoded 09/13/17 09:10) Past Medical History - General Information source: Patient - Social History Smoking Status: Current Every Day Smoker Frequency of alcohol use: None Drug Abuse: None Family History: Reviewed & Not Pertinent Patient has suicidal ideation: No Patient has homicidal ideation: No - Past Medical History Cardiac Medical History: Reports: Hx Hypertension Pulmonary Medical History: Reports: Hx Asthma Neurological Medical History: Reports: Hx Migraine, Hx Seizures - Grand Mal ( last one 2011) Endocrine Medical History: Reports: Hx Diabetes Mellitus Type 2 Renal/ Medical History: Reports: Hx Kidney Stones, Hx Ovarian Cysts. Denies: Hx Peritoneal Dialysis Musculoskeltal Medical History: Reports Hx Arthritis - Lower back, hands Skin Medical History: Reports Hx Cellulitis Psychiatric Medical History: Reports: Hx Attention Deficit Hyperactivity Disorder, Hx Bipolar Disorder Past Surgical History: Reports: Hx Orthopedic Surgery - Rods in back, Hx Tubal Ligation - Immunizations Hx Diphtheria, Pertussis, Tetanus Vaccination: Yes - 2005 Hx Pneumococcal Vaccination: 03/11/07 Review of Systems - Review of Systems Constitutional: No symptoms reported EENT: No symptoms reported Cardiovascular: No symptoms reported Respiratory: No symptoms reported Gastrointestinal: No symptoms reported Genitourinary: No symptoms reported Female Genitourinary: No symptoms reported Musculoskeletal: See HPI Skin: No symptoms reported Hematologic/Lymphatic: No symptoms reported Neurological/Psychological: No symptoms reported Physical Exam - Vital signs Vitals: Temp Pulse Resp BP Pulse Ox 98.2 F 50 L 12 122/67 97 09/13/17 08:41 09/13/17 08:41 09/13/17 08:41 09/13/17 08:41 09/13/17 08:41 - Notes Notes: PHYSICAL EXAMINATION: GENERAL: Uncomfortable appearing, but in no acute distress. HEAD: Atraumatic, normocephalic. EYES: Pupils equal round and reactive to light, extraocular movements intact, sclera anicteric, conjunctiva are normal. NECK: Normal range of motion, supple without lymphadenopathy LUNGS: CTAB and equal. No wheezes rales or rhonchi. HEART: Regular rate and rhythm without murmurs ABDOMEN: Soft, no tenderness. No guarding, no rebound BACK: Thoracic, lumbar, coccyx vertebral tenderness, decreased range of motion secondary to pain GI/: no CVA tenderness EXTREMITIES: Normal range of motion, no pitting edema. No cyanosis. NEUROLOGICAL: Cranial nerves grossly intact. Normal sensory/motor exams. PSYCH: Normal mood, normal affect. SKIN: Warm, Dry, normal turgor, no rashes or lesions noted Course - Re-evaluation Re-evalutation: 09/13/17 11:06 X-rays of the thoracic spine, lumbar spine and sacrum and coccyx negative for any acute pathology, does show old fusion. Patient was sent home on muscle relaxers and anti-inflammatories for pain. - Vital Signs Vital signs: Temp Pulse Resp BP Pulse Ox 98.2 F 50 L 12 122/67 97 09/13/17 08:41 09/13/17 08:41 09/13/17 08:41 09/13/17 08:41 09/13/17 08:41 Discharge - Discharge Clinical Impression: Coccygeal pain, acute Back pain Qualifiers: Back pain location: low back pain Chronicity: acute Back pain laterality: midline Sciatica presence: without sciatica Qualified Code(s): M54.5 - Low back pain Condition: Stable Disposition: HOME, SELF-CARE Additional Instructions: Return immediately for any new or worsening symptoms. Follow up with primary care provider, call tomorrow to make followup appointment. Prescriptions: Cyclobenzaprine HCl [Flexeril 10 mg Tablet] 10 mg PO TIDP PRN #15 tab PRN Reason: Ibuprofen [Motrin 800 mg Tablet] 800 mg PO Q8H PRN #30 tab PRN Reason: Forms: Return to Work Referrals: BALDOMERO SHAIKH DO [Primary Care Provider] - Follow up as needed
== END 2017-09-13 11:21 | disposition home or self-care (01) ==
LOC: ER 08:34
DX: M53.3 Sacrococcygeal disorders, not elsewhere classified (principal); M54.5 Low back pain; M54.6 Pain in thoracic spine; W10.9XXA Fall (on) (from) unspecified stairs and steps, initial encounter; R20.0 Anesthesia of skin; I10 Essential (primary) hypertension; J45.909 Unspecified asthma, uncomplicated; E11.9 Type 2 diabetes mellitus without complications; F17.200 Nicotine dependence, unspecified, uncomplicated; Z91.040 Latex allergy status; Z91.018 Allergy to other foods; Z98.1 Arthrodesis status
CPT/HCPCS: 72070; 72100; 72220; 99283

== ENCOUNTER 2017-09-20 15:03 | Emergency (ER) | payer MEDICAID ==
[2017-09-20] MEDS ORDERED: ACTIVATED CHARCOAL 25 GM BOTTLE PO ONE (15:15)
--- NOTE | 2017-09-20 15:27 | ER Document Report ---
ED Psych Disorder / Suicide - General Stated Complaint: POSSIBLE OVERDOSE Time Seen by Provider: 09/20/17 15:14 Mode of Arrival: Medic Information source: Patient, Emergency Med Personnel TRAVEL OUTSIDE OF THE [place] IN LAST 30 DAYS: No - HPI Patient complains to provider of: Overdose Onset: Just prior to arrival - 35 MIN. PRIOR TO E.D. ARRIVAL Onset was: Sudden Quality of pain: No pain Suicide Risk Factors: Other mental health dx. Situational problems related to: Other - IMPULSIVE RESPOSE, SAYS SHE WAS FRUSTRATED BY "TICS" (SIDE EFFECT OF LATUDA) Overdose of: Other - BENZTROPINE Strength: 1 mg Amount: 7 TABS Normal mood: Yes Associated symptoms: Manic Similar symptoms previously: Yes Recently seen / treated by doctor: No Notes: Alternative history from correction officer penitentiary is that patient was discovered trying to falsify a urine drug test and, when confronted, took the overdose in an effort to redirect the probation officers focus. - Related Data Allergies/Adverse Reactions: latex [Latex] Allergy (Intermediate, Verified 09/13/17 09:10) swelling Beer Allergy (Severe, Uncoded 09/13/17 09:10) Hives Tomatoes Allergy (Severe, Uncoded 09/13/17 09:10) Swelling all over vicryl Allergy (Mild, Uncoded 09/20/17 16:24) Past Medical History - General Information source: Patient - Social History Smoking Status: Current Every Day Smoker Cigarette use (# per day): Yes Chew tobacco use (# tins/day): No Smoking Education Provided: No Frequency of alcohol use: Rare Drug Abuse: Marijuana Lives with: Family Family History: Reviewed & Not Pertinent Patient has suicidal ideation: No Patient has homicidal ideation: No - Past Medical History Cardiac Medical History: Reports: Hx Hypertension Pulmonary Medical History: Reports: Hx Asthma Neurological Medical History: Reports: Hx Migraine, Hx Seizures - Grand Mal ( last one 2011) Endocrine Medical History: Reports: Hx Diabetes Mellitus Type 2 Renal/ Medical History: Reports: Hx Kidney Stones, Hx Ovarian Cysts. Denies: Hx Peritoneal Dialysis Musculoskeltal Medical History: Reports Hx Arthritis - Lower back, hands Skin Medical History: Reports Hx Cellulitis Psychiatric Medical History: Reports: Hx Attention Deficit Hyperactivity Disorder, Hx Bipolar Disorder Past Surgical History: Reports: Hx Orthopedic Surgery - Rods in back, Hx Tubal Ligation - Immunizations Hx Diphtheria, Pertussis, Tetanus Vaccination: Yes - 2005 Hx Pneumococcal Vaccination: 03/11/07 Review of Systems - Review of Systems Constitutional: No symptoms reported EENT: No symptoms reported Cardiovascular: No symptoms reported Respiratory: No symptoms reported Gastrointestinal: No symptoms reported Genitourinary: No symptoms reported Female Genitourinary: No symptoms reported Musculoskeletal: No symptoms reported Skin: No symptoms reported Neurological/Psychological: See HPI Physical Exam - Vital signs Vitals: Resp BP Pulse Ox 15 136/80 H 96 09/20/17 15:46 09/20/17 15:46 09/20/17 15:46 Interpretation: Hypertensive. No: Tachycardic, Tachypneic - General General appearance: Appears well, Alert In distress: None - HEENT Head: Normocephalic Eyes: Normal Conjunctiva: Normal Ears: Normal Nasal: Normal Mouth/Lips: Normal Mucous membranes: Normal Pharynx: Normal Neck: Normal - Respiratory Respiratory status: No respiratory distress Breath sounds: Normal - Cardiovascular Rhythm: Regular Heart sounds: Normal auscultation Murmur: No - Abdominal Inspection: Normal, Striae Bowel sounds: Normal - Extremities General upper extremity: Normal inspection General lower extremity: Normal inspection - Neurological Neuro grossly intact: Yes Cognition: Normal Orientation: AAOx4 - Psychological Associated symptoms: Normal affect, Normal mood - Skin Skin Temperature: Warm Skin Moisture: Dry Skin Color: Normal Skin Turgor: Elastic Course - Vital Signs Vital signs: Temp Pulse Resp BP Pulse Ox 97.8 F 19 123/77 100 09/20/17 16:15 09/20/17 18:01 09/20/17 18:01 09/20/17 18:01 - Laboratory Result Diagrams: 09/20/17 15:31 09/20/17 15:31 Laboratory results interpreted by me: 09/20/17 09/20/17 09/20/17 15:31 15:31 15:31 WBC 15.8 H Hgb 11.5 L MCV 69 L MCH 21.9 L MCHC 31.6 L RDW 18.1 H Seg Neutrophils % 79.3 H Absolute Neutrophils 12.5 H Glucose 116 H Calcium 10.3 H Urine Blood Ur Leukocyte Esterase Acetaminophen < 10 L 09/20/17 09/20/17 16:09 18:24 WBC Hgb MCV MCH MCHC RDW Seg Neutrophils % Absolute Neutrophils Glucose Calcium Urine Blood MODERATE H Ur Leukocyte Esterase LARGE H Acetaminophen < 10 L Discharge - Discharge Clinical Impression: Overdose of drug Qualifiers: Encounter type: initial encounter Injury intent: intentional self-harm Qualified Code(s): T50.902A - Poisoning by unspecified drugs, medicaments and biological substances, intentional self-harm, initial encounter Condition: Stable Disposition: HOME, SELF-CARE Instructions: Overdose ([facility]) Additional Instructions: RESUME TAKING YOUR USUAL MEDICATIONS, BE VERY CAREFUL TO TAKE THEM EXACTLY DIRECTED. FOLLOW UP WITH YOUR PRIMARY CARE PROVIDER OR RETURN TO E.R. NEEDED. Referrals: BALDOMERO SHAIKH DO [Primary Care Provider] - Follow up as needed
[2017-09-20 15:54] LABS: ABSOLUTE BASOPHILS # (AUTO) 0.1 10^3/uL (0.0-0.2); ABSOLUTE EOSINOPHILS # (AUTO) 0.1 10^3/uL (0.0-0.6); ABSOLUTE LYMPHOCYTES (AUTO) 2.6 10^3/uL (0.5-4.7); ABSOLUTE MONOCYTES (AUTO) 0.5 10^3/uL (0.1-1.4); ABSOLUTE NEUT (AUTO) 12.5 10^3/uL (1.7-8.2); BASOPHILS % (AUTO) 0.6 % (0-2); EOSINOPHILS % (AUTO) 0.9 % (0-6); HEMATOCRIT 36.3 % (36.0-47.0); HEMOGLOBIN 11.5 g/dL (12.0-15.5); LYMPHOCYTES % (AUTO) 16.2 % (13-45); MEAN CORPUSCULAR HEMOGLOBIN 21.9 pg (27.0-33.4); MEAN CORPUSCULAR HGB CONC 31.6 g/dL (32.0-36.0); MEAN CORPUSCULAR VOLUME 69 fl (80-97); RED BLOOD COUNT 5.23 10^6/uL (3.72-5.28); RED CELL DISTRIBUTION WIDTH 18.1 % (11.5-14.0); SEGMENTED NEUTROPHILS % (AUTO) 79.3 % (42-78); TOTAL CELLS COUNTED % (AUTO) 100 %; WHITE BLOOD COUNT 15.8 10^3/uL (4.0-10.5)
[2017-09-20 16:07] LABS: ALANINE AMINOTRANSFERASE 24 U/L (9-52); ALBUMIN 4.7 g/dL (3.5-5.0); ALKALINE PHOSPHATASE 95 U/L (38-126); ANION GAP 13 (5-19); ASPARTATE AMINO TRANSFERASE 21 U/L (14-36); BILIRUBIN,DIRECT 0.3 mg/dL (0.0-0.4); BILIRUBIN,TOTAL 0.5 mg/dL (0.2-1.3); BLOOD UREA NITROGEN 10 mg/dL (7-20); CALCIUM 10.3 mg/dL (8.4-10.2); CARBON DIOXIDE 24 mmol/L (22-30); CHLORIDE 103 mmol/L (98-107); GLUCOSE 116 mg/dL (75-110); SODIUM 140.2 mmol/L (137-145); TOTAL PROTEIN 7.8 g/dL (6.3-8.2)
[2017-09-20 16:11] LABS: PLATELET COUNT 282 10^3/uL (150-450)
[2017-09-20 16:40] LABS: URINE AMPHETAMINES SCREEN NEGATIVE; URINE BARBITURATES SCREEN NEGATIVE; URINE BENZODIAZEPINES SCREEN NEGATIVE; URINE COCAINE SCREEN NEGATIVE; URINE MARIJUANA (THC) SCREEN UNCONFIRMED POSITIVE; URINE METHADONE SCREEN NEGATIVE; URINE PHENCYCLIDINE SCREEN NEGATIVE
[2017-09-20 16:50] LABS: APPEARANCE,URINE CLOUDY; BILIRUBIN,URINE NEGATIVE (NEGATIVE); COLOR,URINE YELLOW; GLUCOSE, URINE NEGATIVE (NEGATIVE); KETONES,URINE NEGATIVE (NEGATIVE); LEUKOCYTE ESTERASE,URINE LARGE (NEGATIVE); NITRITE,URINE NEGATIVE (NEGATIVE); PROTEIN,URINE NEGATIVE (NEGATIVE); URINE SPECIFIC GRAVITY 1.005; UROBILINOGEN,URINE NEGATIVE mg/dL (<2.0)
--- NOTE | 2017-09-20 17:14 | PSYCHOLOGICAL NOTE ---
Psych Note - Psych Note Psych Note: Reason for consult: Alleged overdose Eval: 1645 Final Disposition 1700 Patient is a 37 year old female. Patient reports she came because her mail officer was "freaking out". Patient reports she did not ingest the medication because she was suicidal. Patient reports she just "pops more of " her pills sometimes for her tics. Patient reports she feels her medications are not working as prescribed so she does not take it as directed. Patient reports she is seen at [facility] for ADHD and Bipolar Disorder. Patient reports Dr. Winn is her provider. Patient reports she was violated by her mail officer for letting her daughter stay home for 8 days from school. Patient reports her daughter is 14 years old, and states she had lice, and due to the lice she had an excused absence. Patient reports her daughter shaved the side of her hair because of the lice. Patient reports she is on probation because she bought a stolen dog. Patient reports she has 6 months left of mail officer. Patient reports they still have lice. Patient reports she wants to get her meds right so she wont violate her probation. Patient reports she will take care of her daughter make sure her meds are right too at [facility]. Patient reports both her and her daughter need to take care of mental health. Patient reports she has only been to a mental health hospital once 13 years ago, for slitting her wrist superficially to prove point that she "aint scared" to her ex . Patient reports she has a girlfriend now that she wants to spend time with and do good for. Patient reports she takes Benzotropine, Intuniv, and Latuda. Diagnosis: V32.5 (Z65.3) problems related to other legal circumstance 296.80 ( F31.9) Bipolar Disorder per history per patient report Impression/Plan: Patient is psychiatrically cleared for discharge. Recommendation for patient to follow up with [facility], patient reports she has an appointment scheduled 09/21/2017. Clinician observed through comprehensive chart review patient reported to the nurse that this visit was related to patient avoiding a probation violation. Attending physician in agreement with plan. Consulted with Dr. Montgomery regarding the management and care of patient.
[2017-09-20 19:03] VITALS: BP 123/77
--- NOTE | 2017-09-20 20:05 | EKG REPORT ---
SEVERITY:- ABNORMAL ECG - SINUS ARRHYTHMIA, RATE 49-78 PROBABLE LEFT ATRIAL ABNORMALITY PROBABLE LEFT VENTRICULAR HYPERTROPHY : Confirmed by: Felipe Chambers MD 20-Sep-2017 20:05:08
== END 2017-09-20 19:15 | disposition home or self-care (01) ==
LOC: ER 15:03
DX: T50.901A Poisoning by unspecified drugs, medicaments and biological substances, accidental (unintentional), initial encounter (principal); F17.200 Nicotine dependence, unspecified, uncomplicated; I10 Essential (primary) hypertension; J45.909 Unspecified asthma, uncomplicated; E11.9 Type 2 diabetes mellitus without complications; X58.XXXA Exposure to other specified factors, initial encounter
CPT/HCPCS: 93005; 99285; 36415; 80307 ×2; 85025; 81025; 80053; 81001; 93010; J3490

== ENCOUNTER 2018-03-14 03:11 | Emergency (ER) | payer MEDICAID ==
[2018-03-14 04:22] LABS: ABSOLUTE BASOPHILS # (AUTO) 0.1 10^3/uL (0.0-0.2); ABSOLUTE EOSINOPHILS # (AUTO) 0.1 10^3/uL (0.0-0.6); ABSOLUTE MONOCYTES (AUTO) 0.5 10^3/uL (0.1-1.4); ABSOLUTE NEUT (AUTO) 7.4 10^3/uL (1.7-8.2); BASOPHILS % (AUTO) 0.9 % (0-2); HEMATOCRIT 31.5 % (36.0-47.0); LYMPHOCYTES % (AUTO) 27.3 % (13-45); MEAN CORPUSCULAR HEMOGLOBIN 21.1 pg (27.0-33.4); MEAN CORPUSCULAR HGB CONC 31.6 g/dL (32.0-36.0); MEAN CORPUSCULAR VOLUME 67 fl (80-97); MONOCYTES % (AUTO) 4.3 % (3-13); PLATELET COUNT 330 10^3/uL (150-450); RED BLOOD COUNT 4.72 10^6/uL (3.72-5.28); SEGMENTED NEUTROPHILS % (AUTO) 66.5 % (42-78); TOTAL CELLS COUNTED % (AUTO) 100 %; WHITE BLOOD COUNT 11.1 10^3/uL (4.0-10.5)
[2018-03-14 04:33] LABS: ANION GAP 10 (5-19); BLOOD UREA NITROGEN 14 mg/dL (7-20); CALCIUM 9.8 mg/dL (8.4-10.2); CARBON DIOXIDE 23 mmol/L (22-30); CHLORIDE 107 mmol/L (98-107); GLUCOSE 188 mg/dL (75-110); IRON(TIBC) 17.8 ug/dL (37-170); POTASSIUM 4.3 mmol/L (3.6-5.0); SODIUM 139.6 mmol/L (137-145)
[2018-03-14] MEDS ORDERED: NORMAL SALINE 1000 ML 1,000 ML IV ONE (05:43)
--- NOTE | 2018-03-14 06:40 | ER Document Report ---
ED General <CHANDLER APONTE - Last Filed: 03/14/18 08:00> - General TRAVEL OUTSIDE OF THE [place] IN LAST 30 DAYS: No <ANGIE PAULA - Last Filed: 03/17/18 01:35> - General Chief Complaint: Weakness Stated Complaint: WEAKNESS Time Seen by Provider: 03/14/18 03:29 Notes: Patient is a 37-year-old female who presents with complaint of feeling weak and fatigued. Patient says that she has a history of iron deficiency anemia. Symptoms hemoglobin is very low it makes her feel weak like this. She denies any shortness of breath exertion. She denies any recent trauma or injuries. She said she did recent have kidney stones and was treated at [facility] for this. She has not had any recent fevers since being discharged. She is supposed to follow with Dr. Davis to have her infusions. She has not done this in 6 months. (ANGIE PAULA) - Related Data Allergies/Adverse Reactions: latex [Latex] Allergy (Intermediate, Verified 09/13/17 09:10) swelling Beer Allergy (Severe, Uncoded 09/13/17 09:10) Hives Tomatoes Allergy (Severe, Uncoded 09/13/17 09:10) Swelling all over vicryl Allergy (Mild, Uncoded 09/20/17 16:24) Past Medical History - Social History Smoking Status: Current Every Day Smoker Frequency of alcohol use: None Drug Abuse: None Family History: Reviewed & Not Pertinent Patient has suicidal ideation: No Patient has homicidal ideation: No - Past Medical History Cardiac Medical History: Reports: Hx Hypertension Pulmonary Medical History: Reports: Hx Asthma Neurological Medical History: Reports: Hx Migraine, Hx Seizures - Grand Mal ( last one 2011) Endocrine Medical History: Reports: Hx Diabetes Mellitus Type 2 Renal/ Medical History: Reports: Hx Kidney Stones, Hx Ovarian Cysts. Denies: Hx Peritoneal Dialysis Musculoskeletal Medical History: Reports Hx Arthritis - Lower back, hands Skin Medical History: Reports Hx Cellulitis Psychiatric Medical History: Reports: Hx Attention Deficit Hyperactivity Disorder, Hx Bipolar Disorder Past Surgical History: Reports: Hx Orthopedic Surgery - Rods in back, Hx Tubal Ligation - Immunizations Hx Diphtheria, Pertussis, Tetanus Vaccination: Yes - 2005 Hx Pneumococcal Vaccination: 03/11/07 <ANGIE PAULA - Last Filed: 03/17/18 01:35> Review of Systems <ABELINO APONTESTEW - Last Filed: 03/14/18 08:00> <ANGIE PAULA - Last Filed: 03/17/18 01:35> - Review of Systems Notes: My Normal Review Basic REVIEW OF SYSTEMS: CONSTITUTIONAL : Generalized fatigue EENT: Denies eye, ear, throat, or mouth pain or symptoms. Denies nasal or sinus congestion. CARDIOVASCULAR: Denies chest pain. RESPIRATORY: Denies cough, cold, or chest congestion. Denies shortness of breath, difficulty breathing, or wheezing. GASTROINTESTINAL: Denies abdominal pain. Denies nausea, vomiting, or diarrhea. GENITOURINARY: Denies difficulty urinating, painful urination, burning, frequency, or blood in urine. FEMALE GENITOURINARY: Denies vaginal bleeding, abnormal or irregular periods. LMP: 5 days ago MUSCULOSKELETAL: Denies neck or back pain or joint pain or swelling. SKIN: Denies rash or skin lesions. NEUROLOGICAL: Denies altered mental status or loss of consciousness. Denies headache. Denies weakness or paralysis or loss of use of either side. Denies problems with gait or speech. Denies sensory or motor loss. ALL OTHER SYSTEMS REVIEWED AND NEGATIVE. (ANGIE PAULA) Physical Exam <CHANDLER APONTE - Last Filed: 03/14/18 08:00> <ANGIE PAULA - Last Filed: 03/17/18 01:35> - Vital signs Vitals: Temp Pulse Resp BP Pulse Ox 97.7 F 94 13 123/89 H 100 03/14/18 03:34 03/14/18 03:34 03/14/18 03:34 03/14/18 03:34 03/14/18 03:34 - Notes Notes: General Appearance: Well nourished, alert, cooperative, no acute distress, no obvious discomfort. Vitals: reviewed, See vital signs table. Head: no swelling or tenderness to the head Eyes: PERRL, EOMI, Conjuctiva clear Mouth: No decreasd moisture Throat: No tonsillar inflammation, No airway obstruction, No lymphadenopathy Neck: Supple, no neck tenderness Lungs: No wheezing, No rales, No rhonci, No accessory muscle use, good air exchange bilaterally. Heart: Normal rate, Regular rythm, No murmur, no rub Abdomen: Normal BS, soft, No rigidity, No abdominal tenderness, No guarding, no rebound, no abdominal masses, no organomegaly Extremities: strength 5/5 in all extremities, good pulses in all extremities, no swelling or tenderness in the extremities, no edema. Skin: warm, dry, appropriate color, no rash Neuro: speech clear, oriented x 3, normal affect, responds appropriately to questions. (ANGIE PAULA) Course - Laboratory Result Diagrams: 03/14/18 04:05 03/14/18 04:05 <CHANDLER APONTE - Last Filed: 03/14/18 08:00> - Laboratory Result Diagrams: 03/14/18 04:05 03/14/18 04:05 <ANGIE PAULA - Last Filed: 03/17/18 01:35> - Re-evaluation Re-evalutation: 03/17/18 01:34 Patient presented with weakness and feeling more fatigued than usual. She thought she may be severely anemic based on her previous history of having anemia due to iron deficiency anemia. Her hemoglobin is actually much improved compared to what she typically is. Her hemoglobin usually ranges anywhere from 6-8. Today it was 10. I therefore was look for other causes and order UA. Urinalysis was still pending when I left. I checked the patient out to Dr. Aponte. Dr. Aponte followed up on the urinalysis and it does show evidence of UTI and he placed her on Macrobid. Dictation of this chart was performed using voice recognition software; therefore, there may be some unintended grammatical errors. (ANGIE PAULA) - Vital Signs Vital signs: Temp Pulse Resp BP Pulse Ox 98.0 F 78 20 160/86 H 97 03/14/18 08:26 03/14/18 08:26 03/14/18 08:26 03/14/18 08:26 03/14/18 08:26 - Laboratory Laboratory results interpreted by me: 03/14/18 03/14/18 03/14/18 04:05 04:05 06:40 WBC 11.1 H Hgb 10.0 L Hct 31.5 L MCV 67 L MCH 21.1 L MCHC 31.6 L RDW 19.0 H Glucose 188 H Iron 17.8 L Ferritin 4.20 L Urine Protein 30 H Urine Glucose (UA) 150 H Urine Urobilinogen 2.0 H Ur Leukocyte Esterase LARGE H Discharge <CHANDLER APONTE - Last Filed: 03/14/18 08:00> <ANGIE PAULA - Last Filed: 03/17/18 01:35> - Discharge Clinical Impression: Weakness, Iron deficiency UTI (urinary tract infection) Qualifiers: Urinary tract infection type: acute cystitis Hematuria presence: without hematuria Qualified Code(s): N30.00 - Acute cystitis without hematuria Condition: Fair Disposition: HOME, SELF-CARE Instructions: Urinary Tract Infection ([facility]) Additional Instructions: Please follow up with Dr. Davis to continue your iron infusions.please return to the ER immediately if you have worsening weakness, fevers ,chest pain, or feel unwell. Prescriptions: Nitrofurantoin Monohyd/M-Cryst [Macrobid 100 mg Capsule] 100 mg PO BID #20 capsule
[2018-03-14 07:22] LABS: APPEARANCE,URINE TURBID; BILIRUBIN,URINE NEGATIVE (NEGATIVE); COLOR,URINE YELLOW; GLUCOSE, URINE 150 mg/dL (NEGATIVE); KETONES,URINE NEGATIVE (NEGATIVE); LEUKOCYTE ESTERASE,URINE LARGE (NEGATIVE); NITRITE,URINE NEGATIVE (NEGATIVE); PROTEIN,URINE 30 mg/dL (NEGATIVE); URINE SPECIFIC GRAVITY 1.023
[2018-03-14 08:27] VITALS: BP 160/86
== END 2018-03-14 08:28 | disposition home or self-care (01) ==
LOC: ER 03:11
DX: N30.00 Acute cystitis without hematuria (principal); R53.1 Weakness; E61.1 Iron deficiency; F17.200 Nicotine dependence, unspecified, uncomplicated; I10 Essential (primary) hypertension; Z91.040 Latex allergy status; Z87.442 Personal history of urinary calculi; Z98.51 Tubal ligation status
CPT/HCPCS: 36415; 80048; 81001; 82728; 83540; 83550; 84703; 85025; 96360; 99285